=== PATIENT | female | born 1955 | race Caucasian/White ===

== ENCOUNTER → 2017-08-27 11:16 | Outpatient (CLI) | payer MEDICARE, SELFPAY ==
--- NOTE | 2017-08-27 11:35 | XR_ITS ---
XR ribs RT min 3V w CXR1V HISTORY: Right-sided rib pain, remote fall with pain anteriorly and posteriorly ITS.REASON: RT SIDE RIB PAIN ORDERING PHYSICIAN: ONIEL Middleton PATIENT AGE: 62 years COMPARISON: 03/21/2017 FINDINGS: A frontal view of the chest shows bilateral lower lobe atelectatic changes. Linear densities once again noted in the perihilar region as previously described. Multiple views of the right ribs were obtained. There are displaced fractures of the lateral aspect of the right third fourth and fifth ribs. No obvious pneumothorax. IMPRESSION: Displaced fractures of the right third fourth and fifth ribs with bilateral lower lobe atelectasis
[2017-08-27 11:44] LABS: Basophils # 0.1 K/mm3 (0-0.2); Basophils % 0.9 % (0.1-2.0); Eosinophils # 0.4 K/mm3 (0.0-0.4); Eosinophils % 7.4 % (0.1-12.0); Hematocrit 41.4 % (37.0-47.0); Hemoglobin 13.8 g/dL (12.2-16.2); Lymphocytes # 2.1 K/mm3 (0.7-4.5); Mean Corpuscular HGB Conc 33.4 g/dL (31.8-35.4); Mean Corpuscular Hemoglobin 31.5 pg (27.0-31.2); Mean Corpuscular Volume 94.3 fl (81-99); Mean Platelet Volume 7.1 fl (7.4-10.4); Monocytes # 0.3 K/mm3 (0.1-1.0); Monocytes % 6.3 % (1.7-9.3); Neutrophils # 2.3 K/mm3 (1.8-7.8); Neutrophils % 45.4 % (37.0-80.0); Platelet Count 238 K/mm3 (142-424); Red Blood Count 4.39 M/mm3 (4.20-5.40); White Blood Count 5.1 K/mm3 (4.8-10.8)
[2017-08-27 13:13] LABS: Alanine Aminotransferase 22 U/L (12-78); Albumin Level 3.9 gm/dL (3.4-5.0); Albumin/Globulin Ratio 1.1 (1.1-1.8); Alkaline Phosphatase 139 U/L (46-116); Anion Gap 14.9 mEq/L (5-15); Aspartate Amino Transferase 30 U/L (15-37); Bilirubin,Total 0.2 mg/dL (0.2-1.0); Blood Urea Nitrogen 24 mg/dL (7-18); Calcium 9.4 mg/dL (8.5-10.1); Carbon Dioxide 27 mmol/L (21.0-32.0); Chloride 103 mmol/L (98-107); Creatinine,Serum 0.67 mg/dL (0.55-1.02); Estimated Glomerular Filt Rate 90 ml/min (>60); GFR (African American) 109 ML/MIN (>60); Globulin 3.7 gm/dl (1.3-3.2); Glucose 92 mg/dL (74-106); Sodium 140 mmol/L (136-145); Thyroid Stimulating Hormone 1.62 uIU/ml (0.358-3.740); Total Protein,Serum 7.6 gm/dL (6.4-8.2)
[2017-08-27 13:32] LABS: Potassium 4.9 mmoL/L (3.5-5.1)
[2017-08-28 08:51] LABS: Vitamin D 25 Hydroxy 11.6 ng/mL (30.0-100.0)
[2017-08-29 18:19] LABS: Vitamin B12 627 pg/mL (232-1245)
== END ==
PROVIDERS: PCP Physician Assistant; Visit Provider Physician Assistant
DX: R55 Syncope and collapse (principal); R07.81 Pleurodynia; Z79.899 Other long term (current) drug therapy
CPT/HCPCS: 36415; 71101; 80053; 82607; 82652; 84443; 85025

== ENCOUNTER 2017-11-05 19:34 | Emergency (ER) | payer MEDICARE, SELFPAY ==
[2017-11-05 19:35] VITALS: BP 117/56; PULSE 78; RESP 20; TEMP 36.6; O2SAT 93; BMI 28.8
--- NOTE | 2017-11-05 19:40 | XR_ITS ---
XR chest AP COMPARISON: PA chest and right RIBS 08/27/2017 HISTORY: Chest pain after a fall TECHNIQUE: AP supine chest FINDINGS: The lung may are well expanded and appear clear of infiltrate. Cardiac size is normal and the vascularity is normal. Again noted are linear opacities in both perihilar region which have been described previously. There is no obvious rib fracture and there is no pneumothorax. IMPRESSION: Nonacute chest findings
--- NOTE | 2017-11-05 19:40 | CT_ITS ---
CT head/brain wo con Ordering Physician: Bright Fofana MD Patient Age: 62 years: Female HISTORY: ITS.REASON: fall, ams TECHNIQUE: [address] of [address] axial CT head without contrast Motion on the first set onto the second set of images in scanning. COMPARISON :June 12, 2014 FINDINGS No acute intracranial findings. No hemorrhage. No mass. No subdural collection. Possible some mild chronic small vessel deep white matter changes. No extra-axial nor subdural collection. Posterior fossa unremarkable. There is soft tissue swelling and generous hematoma overlying the left supraorbital region, left for head and extending to the left anterior scalp. The underlying skull is intact. No skull fracture. The left globe and orbit seem to be grossly intact as partially visualized on this head CT. The visualized nasal sinuses are clear. The mastoid air cells middle air and IACs well-developed unremarkable. IMPRESSION: No acute intracranial findings. Stable CT head Swelling and superficial forehead soft tissue hematoma, and extending to the anterior scalp. Skull intact
--- NOTE | 2017-11-05 19:40 | XR_ITS ---
XR pelvis 1-2V COMPARISON: The HISTORY pelvic pain after a fall TECHNIQUE: AP pelvis FINDINGS: The iliac bones and pubic bones appear intact. There is a total hip prosthesis left side appears intact. There is minor asymmetrical joint space narrowing right hip. There is a vertebroplasty of the L4 vertebral body. IMPRESSION: AP pelvis negative for acute fracture
--- NOTE | 2017-11-05 19:42 | CT_ITS ---
CT cervical spine wo con Ordering Physician: Bright Fofana MD Patient Age: 62 years: Female HISTORY: ITS.REASON: FALL TECHNIQUE: Helical CT scanning performed the cervical spine with axial, sagittal and coronal reconstructions on the CT workstation COMPARISON :previous CT chest from 04/14/2017e FINDINGS The cervical spine intact with no acute fracture The cervical vertebral bodies are intact with normal alignment but no fracture nor subluxation. The facets appear intact mild degenerative changes throughout most evident towards lower C-spine on left and mid C-spine on right. Minimal Prevertebral soft tissues appear normal. As does alignment C1-C2 relationships appear normal. Apices the lungs are clear There is mild wedging and slight loss of height at the superior aspect of T1 but this appears similar to the previous CT chest from 04/14/2017 reflects a minor old compression injury here IMPRESSION: 1. C-spine intact with No acute fracture or subluxation. 2. Minor old superior endplate compression & wedging at T1 vertebra is. Unchanged since previous CT chest from Apr 2017
--- NOTE | 2017-11-05 19:43 | CT_ITS ---
CT thoracic spine wo con Ordering Physician: Bright Fofana MD Patient Age: 62 years: Female HISTORY: ITS.REASON: fall TECHNIQUE: Helical CT scanning performed through the thoracic spine with sagittal and coronal and axial reconstructions on CT workstation COMPARISON : prior CT chest April 2017 most useful. Also CTA chest from May 2017 utilized FINDINGS Stable mild wedge compression fracture at T1 involving superior endplate... Only 10-15% % loss of height here anteriorly The posterior spinous process of C7 and T1 shows no displaced fracture. There is question of a possible hairline fracture towards the tip the T1q but this is equivocal. . Motion artifact on this CT C-spine of this area... Some irregular appearance but no fracture seen particularly on these CT thoracic spine studies including this area. T2, T2-3, T4-T5 vertebral bodies intact. T6 vertebra acute compression fracture.: This is the most significant finding on this study. Fracture with buckling of the cortex anteriorly & posteriorly.. Biconcave endplates con cavity with wedge compression most pronounced along superior endplate. Up to nearly 50% loss of height centrally with 35% loss of height at anterior margin Retropulsion with mild displacement of a modest fragment from the posterior superior corner of T6. . This posterior superior corner fragment retropulsion extends up to 3 mm posteriorly as left and right of midline yielding indentation upon the anterior aspect thecal sac with to the left and right of midline,. Foraminal encroachment most evident to the left foramen, as nicely seen on sagittal view. There is also some minimal fragmentation of the anterior inferior corner of T6 to the right Benign hemangioma at T7 account for striated appearance here. This benign vertebral hemangioma measures up to 2 cm AP on the left aspect of T7 vertebral body. Unchanged since prior CT chest study . The remaining vertebral bodies from T7 through T12 appear intact There is some minimal facet arthropathy throughout the mid as well as lower T-spine. These involve the facets T5/6 the anterior to the T11/12 level. Unimpressive feature but noted. The neural foramen throughout the lower T-spine intact. . The ribs adjacent the spine appear intact The visualized portions of the lungs show no pneumothorax but there is atelectasis most evident towards the infrahilar region and lung bases. Along with I believe some mild vascular congestion. Recommend 2 view chest for correlation. There is also a curious linear radiopaque calcified densities seen at the lower lobe pulmonary arteries bilaterally there certainly reminiscent of sheared fragments and have been noted previously on CTA and CT chest. A catheter sheared fragment? =====IMPRESSION: ======== 1. Acute Wedge compression fracture T6 . Minimal retropulsion from posterior superior corner T6, diffusely indents the thecal sac at this level & yielding bilateral foraminal encroachment most evident to the left.. 2. Equivocal, questionable subtle hairline fracture along the posterior aspect T1 spinous process. 3. Bibasilar atelectasis w/ questionable early infiltrate posterior left lung base. With suggestion mild vascular engorgement on today's study. Appearance This may be exaggerated by the suboptimal lung inspiration and suboptimal lung expansion as well. As previously reported again note linear densities towards within branches of lower lobe pulmonary arteries as noted as seen on previous CT chest studies from 2017. Reflecting an usual branching branching structures or calcification but cannot exclude sheared catheter fragments.
--- NOTE | 2017-11-05 19:46 | PC.NURSE ---
PT WORDS ARE REPETITIVE ALTHOUGH SHE IS ALERT AND ORIENTED X 4 AND ANSWERS QUESTIONS APPROPRIATELY. RIGHT PUPIL IS MEASURED AT 5 MM AND SLUGGISH, THE LEFT IS 4MM AND BRISK. DR. YU NOTIFIED OF FINDINGS.
--- NOTE | 2017-11-05 19:53 | HMH.EDGENADL ---
ED Disposition Condition on Discharge: Fair - Critical Care Critical Care Time: Yes Total Critical Care Time: 35 Vital system(s) involved:: Central Nervous System My critical care processes included: Assessment & monitoring of V/S, Initial and Re-exams, Data Review/Interpretation, Coordinating Care, Medication Orders and management, Documentation <Bright Fofana Delio - Last Filed: 11/05/17 19:53> <Trae Pulido - Last Filed: 11/05/17 21:45> Clinical Impression: Fracture of thoracic spine at T1-T2 level Change in mental status Qualifiers: Altered mental status type: unspecified Qualified Code(s): R41.82 - Altered mental status, unspecified Fall Qualifiers: Encounter type: initial encounter Qualified Code(s): W19.XXXA - Unspecified fall, initial encounter Concussion without loss of consciousness Qualifiers: Encounter type: initial encounter Qualified Code(s): S06.0X0A - Concussion without loss of consciousness, initial encounter Thoracic compression fracture Qualifiers: Encounter type: initial encounter Fracture type: closed Qualified Code(s): S22.000A - Wedge compression fracture of unspecified thoracic vertebra, initial encounter for closed fracture Disposition: Xfer Short-Term Hosp Referrals: Addis Hawk PA [Primary Care Provider] - Attestation: On 11/05/17, the high probability of a clinically significant, sudden or life threatening deterioration of the following system(s) required my full and direct attention, intervention and personal management. The time I documented below is in addition to time spent performing reported procedures but includes the following listed in this critical care notation. Medical Decision Making - Medical Records Medical records reviewed: Yes: I reviewed the patient's medical records. - Mehdi Inquiry Pt receiving controlled substance: No - ECG Data Tracing #1 I reviewed this ECG and interpreted as documented below: ECG normal with no acute: arrhythmias, ischemia, conduction abnormalities, chamber hypertrophy Normal Sinus Rhythm: No <Bright Fofana - Last Filed: 11/05/17 19:53> - Lab Data Lab results reviewed: Yes: I reviewed the patient's lab results. Result diagrams: 11/05/17 19:49 11/05/17 19:49 - Radiology Data #1 Image(s): Chest, Pelvis Image Reviewed: Yes I reviewed the patient's radiology image Preliminary Findings: No Fracture Seen - CT Data CT Scan: Head, C-Spine, T-Spine Time Received: 21:[address] Reviewed: Yes: I have viewed the radiologist's interpretation Preliminary Findings: Abnormal (t6 fx ) - Physician Consults Physician Consulted: trauma Reason -: Transfer to another facilty <Trae Pulido - Last Filed: 11/05/17 21:45> Vital Signs: 11/05/17 19:35 Temperature 97.9 F Temperature Source Oral Pulse Rate [Right Radial] 78 Respiratory Rate 20 Blood Pressure [Right Arm] 117/56 Blood Pressure Mean [Right Arm] 76 02 Sat by Pulse Oximetry 93 L - Lab Data Lab Results 11/05/17 19:44: Urine Color Yellow, Urine Appearance Clear, Urine pH 6.5, Ur Specific [place] 1.025, Urine Protein Negative, Urine Glucose (UA) Negative, Urine Ketones Negative, Urine Blood Negative, Urine Nitrate Negative, Urine Bilirubin Negative, Urine Urobilinogen 0.2, Ur Leukocyte Esterase Negative, Urine RBC Occasional, Urine WBC Occasional, Ur Squamous Epith Cells 10-20, Urine Bacteria 1+, Hyaline Casts Occasional, Fine Granular Casts Occasional, Urine Mucus Trace 11/05/17 19:44: Urine Opiates Screen Negative, Ur Barbituates Screen Positive H, Ur Phencyclidine Scrn Negative, Ur Amphetamines Screen Negative, U Methamphetamines Scrn Negative, U Benzodiazepines Scrn Negative, Urine Cocaine Screen Negative, U Marijuana (THC) Screen Negative 11/05/17 19:49: WBC 6.3, RBC 4.27, Hgb 13.4, Hct 40.9, MCV 95.9, MCH 31.4 H, MCHC 32.8, RDW 12.3, Plt Count 225, MPV 7.0 L, Neut % (Auto) 72.1, Lymph % (Auto) 21.3, [place] % (Auto) 5.1, Eos % (Auto) 1.1, Baso % (A
[2017-11-05 19:55] LABS: Microscopic, Urine URINE MICROSCOPIC (MICROSCOPIC)
--- NOTE | 2017-11-05 19:56 | ED_ITS ---
ED Disposition Condition on Discharge: Fair - Critical Care Critical Care Time: Yes Total Critical Care Time: 35 Vital system(s) involved:: Central Nervous System My critical care processes included: Assessment & monitoring of V/S, Initial and Re-exams, Data Review/Interpretation, Coordinating Care, Medication Orders and management, Documentation <Bright Fofana Delio - Last Filed: 11/05/17 19:53> <Trae Pulido - Last Filed: 11/05/17 21:45> Clinical Impression: Fracture of thoracic spine at T1-T2 level Change in mental status Qualifiers: Altered mental status type: unspecified Qualified Code(s): R41.82 - Altered mental status, unspecified Fall Qualifiers: Encounter type: initial encounter Qualified Code(s): W19.XXXA - Unspecified fall, initial encounter Concussion without loss of consciousness Qualifiers: Encounter type: initial encounter Qualified Code(s): S06.0X0A - Concussion without loss of consciousness, initial encounter Thoracic compression fracture Qualifiers: Encounter type: initial encounter Fracture type: closed Qualified Code(s): S22.000A - Wedge compression fracture of unspecified thoracic vertebra, initial encounter for closed fracture Disposition: Xfer Short-Term Hosp Referrals: Addis Hawk PA [Primary Care Provider] - Attestation: On 11/05/17, the high probability of a clinically significant, sudden or life threatening deterioration of the following system(s) required my full and direct attention, intervention and personal management. The time I documented below is in addition to time spent performing reported procedures but includes the following listed in this critical care notation. Medical Decision Making - Medical Records Medical records reviewed: Yes: I reviewed the patient's medical records. - Mehdi Inquiry Pt receiving controlled substance: No - ECG Data Tracing #1 I reviewed this ECG and interpreted as documented below: ECG normal with no acute: arrhythmias, ischemia, conduction abnormalities, chamber hypertrophy Normal Sinus Rhythm: No <Bright Fofana - Last Filed: 11/05/17 19:53> - Lab Data Lab results reviewed: Yes: I reviewed the patient's lab results. Result diagrams: 11/05/17 19:49 11/05/17 19:49 - Radiology Data #1 Image(s): Chest, Pelvis Image Reviewed: Yes I reviewed the patient's radiology image Preliminary Findings: No Fracture Seen - CT Data CT Scan: Head, C-Spine, T-Spine Time Received: 21:[address] Reviewed: Yes: I have viewed the radiologist's interpretation Preliminary Findings: Abnormal (t6 fx ) - Physician Consults Physician Consulted: trauma Reason -: Transfer to another facilty <Trae Pulido - Last Filed: 11/05/17 21:45> Vital Signs: 11/05/17 19:35 Temperature 97.9 F Temperature Source Oral Pulse Rate [Right Radial] 78 Respiratory Rate 20 Blood Pressure [Right Arm] 117/56 Blood Pressure Mean [Right Arm] 76 02 Sat by Pulse Oximetry 93 L - Lab Data Lab Results 11/05/17 19:44: Urine Color Yellow, Urine Appearance Clear, Urine pH 6.5, Ur Specific [place] 1.025, Urine Protein Negative, Urine Glucose (UA) Negative, Urine Ketones Negative, Urine Blood Negative, Urine Nitrate Negative, Urine Bilirubin Negative, Urine Urobilinogen 0.2, Ur Leukocyte Esterase Negative, Urine RBC Occasional, Urine WBC Occasional, Ur Squamous Epith Cells 10-20, Urine Bacteria 1+, Hyaline Casts Occasional, Fine
[2017-11-05 20:03] LABS: Appearance,Urine CLEAR (Clear); Bilirubin,Urine Negative (Negative); Blood, Urine Negative (Negative); Color,Urine YELLOW (Yellow); Glucose,Urine (UA) Negative (Negative); Ketones,Urine Negative (Negative); Leukocyte Esterase,Urine Negative (Negative); Nitrate,Urine Negative (Negative); PH,Urine 6.5 (5.0-8.5); Protein,Urine Negative (Negative); Specific Gravity, Urine 1.025 (1.005-1.030); Urobilinogen,Urine 0.2 EU/dl (0.2)
[2017-11-05 20:03] LABS: Basophils % 0.5 % (0.1-2.0); Eosinophils # 0.1 K/mm3 (0.0-0.4); Eosinophils % 1.1 % (0.1-12.0); Hematocrit 40.9 % (37.0-47.0); Hemoglobin 13.4 g/dL (12.2-16.2); Lymphocytes # 1.3 K/mm3 (0.7-4.5); Lymphocytes % 21.3 K/mm3 (10-50); Mean Corpuscular HGB Conc 32.8 g/dL (31.8-35.4); Mean Corpuscular Hemoglobin 31.4 pg (27.0-31.2); Mean Corpuscular Volume 95.9 fl (81-99); Monocytes # 0.3 K/mm3 (0.1-1.0); Monocytes % 5.1 % (1.7-9.3); Neutrophils # 4.6 K/mm3 (1.8-7.8); Neutrophils % 72.1 % (37.0-80.0); Platelet Count 225 K/mm3 (142-424); Red Blood Count 4.27 M/mm3 (4.20-5.40); Red Cell Distribution Width 12.3 % (11.5-17.5); White Blood Count 6.3 K/mm3 (4.8-10.8)
[2017-11-05 20:21] LABS: Amphetamine/Metha Screen,Urine Negative ng/mL (<1000); Barbiturates Screen,Urine Positive ng/mL (<200); Benzodiazepines Screen,Urine Negative ng/mL (200); Cannabinoid Screen,Urine Negative ng/mL (<50); Cocaine Screen,Urine Negative ng/g (<300); Methadone Screen,Urine Negative ng/mL (<300); Opiate Screen,Urine Negative ng/mL (<300); Phencyclidine Screen,Urine Negative ng/mL (<25)
[2017-11-05 20:29] LABS: Alanine Aminotransferase 20 U/L (12-78); Albumin Level 3.6 gm/dL (3.4-5.0); Alkaline Phosphatase 94 U/L (46-116); Anion Gap 12.1 mEq/L (5-15); Aspartate Amino Transferase 20 U/L (15-37); Bilirubin,Total 0.2 mg/dL (0.2-1.0); Blood Urea Nitrogen 13 mg/dL (7-18); CKMB Relative Index 1.2 U/L (0-4.0); Calcium 8.6 mg/dL (8.5-10.1); Carbon Dioxide 27 mmol/L (21.0-32.0); Chloride 92 mmol/L (98-107); Creatine Kinase 81 U/L (26-192); Creatinine Clearance Estimated 115 mL/min (0-300); Creatinine,Serum 0.71 mg/dL (0.55-1.02); Estimated Glomerular Filt Rate 84 ml/min (>60); GFR (African American) 102 ML/MIN (>60); Globulin 3.7 gm/dl (1.3-3.2); Glucose 132 mg/dL (74-106); Potassium 4.1 mmoL/L (3.5-5.1); Sodium 127 mmol/L (136-145); Total Protein,Serum 7.3 gm/dL (6.4-8.2); Troponin I < 0.02 ng/ml (0.00-0.06)
[2017-11-05 20:33] LABS: Ethyl Alcohol 0 mg/dL (0-99)
[2017-11-05 20:44] LABS: Bacteria,Urine 1+ /lpf; Hyaline Casts,Urine Occasional #/lpf (0); RBC,Urine Occasional #/hpf (0-3); WBC,Urine Occasional #/hpf (0-3)
[2017-11-05 20:45] LABS: Fine Granular Casts,Urine Occasional #/lpf (0); Mucus,Urine Trace /lpf
--- NOTE | 2017-11-05 20:56 | PC.NURSE ---
spoke with who reports pt is treated for headaches by Dr Estrada in [place], gave approx timeline, headache started about 1500, suffers visual disturbance, still unable to get out of bed at 1700, fell about 1800 and could not get off floor. also gave partial med list.
--- NOTE | 2017-11-05 21:44 | PC.NURSE ---
Spoke with and informed of transport to [facility]
--- NOTE | 2017-11-05 21:50 | PC.NURSE ---
[facility] notified of transfer
[2017-11-05 22:12] VITALS: BP 151/90; PULSE 87; RESP 18; TEMP 37.1; O2SAT 98
== END 2017-11-05 22:14 | disposition short-term general hospital (02) ==
PROVIDERS: Emergency Provider Emergency Medicine; Family Provider Physician Assistant; PCP Physician Assistant
DX: S06.0X0A Concussion without loss of consciousness, initial encounter (principal); S22.000A Wedge compression fracture of unspecified thoracic vertebra, initial encounter for closed fracture; W19.XXXA Unspecified fall, initial encounter
CPT/HCPCS: 36415; 70450; 71045; 72125; 72128; 72170; 80053; 80305; 81001; 82550; 82553; 84484; 85025; 93005; 96374; 99284

== ENCOUNTER → 2018-01-14 08:31 | Outpatient (CLI) | payer MEDICARE, SELFPAY ==
[2018-01-14 09:09] LABS: Basophils % 0.8 % (0.1-2.0); Eosinophils # 0.2 K/mm3 (0.0-0.4); Eosinophils % 5.6 % (0.1-12.0); Hematocrit 43.4 % (37.0-47.0); Hemoglobin 13.7 g/dL (12.2-16.2); Lymphocytes # 1.9 K/mm3 (0.7-4.5); Lymphocytes % 48.5 K/mm3 (10-50); Mean Corpuscular HGB Conc 31.6 g/dL (31.8-35.4); Mean Corpuscular Hemoglobin 29.7 pg (27.0-31.2); Mean Corpuscular Volume 93.9 fl (81-99); Mean Platelet Volume 6.9 fl (7.4-10.4); Monocytes # 0.2 K/mm3 (0.1-1.0); Monocytes % 5.3 % (1.7-9.3); Neutrophils # 1.6 K/mm3 (1.8-7.8); Neutrophils % 39.8 % (37.0-80.0); Platelet Count 230 K/mm3 (142-424); Red Blood Count 4.63 M/mm3 (4.20-5.40); Red Cell Distribution Width 12.8 % (11.5-17.5); White Blood Count 3.9 K/mm3 (4.8-10.8)
--- NOTE | 2018-01-14 09:35 | XR_ITS ---
XR DEXA axial skeleton HISTORY: ITS.REASON: OSTEOPAROSIS ORDERING PHYSICIAN: Deepak Morales PATIENT AGE: 62 years COMPARISON: None FINDINGS: The BMD measured at the total right femur is 0.650 g/cm squared with a T score of -2.8. This is considered Osteoporotic according to the World Health Organization criteria. Fracture risk is High. . Suggested. Recommend follow exam January 2019.. IMPRESSION: Osteoporosis with high fracture risk
[2018-01-14 10:52] LABS: Alanine Aminotransferase 19 U/L (12-78); Albumin Level 3.9 gm/dL (3.4-5.0); Alkaline Phosphatase 90 U/L (46-116); Anion Gap 11.5 mEq/L (5-15); Aspartate Amino Transferase 17 U/L (15-37); Bilirubin,Direct 0.1 mg/dL (0.0-0.2); Bilirubin,Indirect 0.3 mg/dL (0.0-0.9); Bilirubin,Total 0.4 mg/dL (0.2-1.0); Blood Urea Nitrogen 16 mg/dL (7-18); Calcium 9.4 mg/dL (8.5-10.1); Carbon Dioxide 29 mmol/L (21.0-32.0); Chloride 105 mmol/L (98-107); Creatinine,Serum 0.69 mg/dL (0.55-1.02); Estimated Glomerular Filt Rate 87 ml/min (>60); GFR (African American) 105 ML/MIN (>60); Glucose 94 mg/dL (74-106); Phosphorous 3.4 mg/dL (2.4-4.9); Potassium 4.5 mmoL/L (3.5-5.1); Sodium 141 mmol/L (136-145); Total Protein,Serum 7.4 gm/dL (6.4-8.2)
[2018-01-16 13:33] LABS: Parathyroid Hormone Intact 61 pg/mL (15-65); Vitamin D 25 Hydroxy 13.7 ng/mL (30.0-100.0)
== END ==
PROVIDERS: Family Provider Physician Assistant; PCP Physician Assistant; Visit Provider Orthopaedic Surgery
DX: M81.0 Age-related osteoporosis without current pathological fracture (principal); Z01.818 Encounter for other preprocedural examination
CPT/HCPCS: 36415; 77080; 80048; 80053; 80076; 82565; 82652; 83970; 84100; 85025

== ENCOUNTER → 2018-03-12 08:03 | Outpatient (CLI) | payer MEDICARE, SELFPAY ==
[2018-03-13 15:23] LABS: Vitamin D 25 Hydroxy 61.2 ng/mL (30.0-100.0)
== END ==
PROVIDERS: Visit Provider Orthopaedic Surgery
DX: S22.000A Wedge compression fracture of unspecified thoracic vertebra, initial encounter for closed fracture (principal)
CPT/HCPCS: 36415; 82652

== ENCOUNTER → 2018-03-20 08:06 | Outpatient (CLI) | payer MEDICARE, SELFPAY ==
[2018-03-20 08:44] LABS: Basophils % 0.8 % (0.1-2.0); Eosinophils # 0.2 K/mm3 (0.0-0.4); Eosinophils % 3.8 % (0.1-12.0); Hematocrit 41.1 % (37.0-47.0); Hemoglobin 13.5 g/dL (12.2-16.2); Lymphocytes # 1.8 K/mm3 (0.7-4.5); Lymphocytes % 42.5 K/mm3 (10-50); Mean Corpuscular HGB Conc 32.8 g/dL (31.8-35.4); Mean Corpuscular Volume 91.5 fl (81-99); Mean Platelet Volume 6.7 fl (7.4-10.4); Monocytes # 0.2 K/mm3 (0.1-1.0); Monocytes % 5.8 % (1.7-9.3); Neutrophils % 47.1 % (37.0-80.0); Platelet Count 196 K/mm3 (142-424); Red Blood Count 4.49 M/mm3 (4.20-5.40); White Blood Count 4.3 K/mm3 (4.8-10.8)
[2018-03-20 09:30] LABS: Calcium 8.8 mg/dL (8.5-10.1); Phosphorous 2.6 mg/dL (2.4-4.9)
[2018-03-21 18:42] LABS: Alkaline Phosphatase 72 IU/L (39-117); Parathyroid Hormone Intact 50 pg/mL (15-65)
[2018-03-24 15:22] LABS: Bone Fraction: 37 % (14-68); Liver Fraction: 63 % (18-85)
[2018-03-25 10:57] LABS: Intestinal Frac.: 0 % (0-18)
== END ==
PROVIDERS: Visit Provider Orthopaedic Surgery
DX: M80.08XD Age-related osteoporosis with current pathological fracture, vertebra(e), subsequent encounter for fracture with routine healing (principal); Z79.899 Other long term (current) drug therapy
CPT/HCPCS: 36415; 82310; 83970; 84075; 84080; 84100; 85025

== ENCOUNTER → 2018-08-11 10:13 | Outpatient (CLI) | payer MEDICARE, SELFPAY ==
--- NOTE | 2018-08-11 10:18 | XR_ITS ---
XR pelvis 1-2V HISTORY: Follow-up fracture, pain ITS.REASON: Injury of pelvis ORDERING PHYSICIAN: Demetria Macedo MD PATIENT AGE: 63 years Comparison: 07/17/2018 FINDINGS: Healing fractures present involving the junction of superior pubic ramus with the ischium on the right and at the mid aspect of the inferior pubic ramus. Fracture line is somewhat less distinct. There is a left bipolar hip prosthesis present and there has been prior kyphoplasty at L4. IMPRESSION: Healing nondisplaced right superior anterior pubic rami fractures
== END ==
PROVIDERS: PCP Physician Assistant; Visit Provider Orthopaedic Surgery
DX: S32.599A Other specified fracture of unspecified pubis, initial encounter for closed fracture (principal)
CPT/HCPCS: 72170

== ENCOUNTER → 2018-09-28 07:46 | Outpatient (CLI) | payer MEDICARE, SELFPAY ==
--- NOTE | 2018-09-28 08:06 | XR_ITS ---
XR hip RT 2-3V w/pelvis HISTORY: Right hip pain, follow-up fracture ITS.REASON: CLOSE FX RAMUS ORDERING PHYSICIAN: ONIEL Middleton PATIENT AGE: 63 years COMPARISON: 07/17/2018 FINDINGS: Fracture line remains visible involving the junction of the right superior pubic ramus with the ischium. This fracture is nondisplaced. There may be some minimal callus formation medially. The fracture line is somewhat less apparent. There is developing calcification along the central aspect of the inferior pubic ramus on the right consistent with a healing fracture. The hip joint has an unremarkable appearance. There is a bipolar prosthesis present on the left. IMPRESSION: Healing right superior and inferior pubic rami fractures nondisplaced
[2018-09-28 09:14] LABS: Erythrocyte Sedimentation Rate 27 mm/hr (0-30)
[2018-09-28 09:34] LABS: Alanine Aminotransferase 21 U/L (12-78); Albumin Level 3.6 gm/dL (3.4-5.0); Albumin/Globulin Ratio 1.1 (1.1-1.8); Alkaline Phosphatase 125 U/L (46-116); Anion Gap 11.5 mEq/L (5-15); Aspartate Amino Transferase 11 U/L (15-37); Bilirubin,Total 0.3 mg/dL (0.2-1.0); Blood Urea Nitrogen 13 mg/dL (7-18); Calcium 8.7 mg/dL (8.5-10.1); Carbon Dioxide 28 mmol/L (21.0-32.0); Chloride 107 mmol/L (98-107); Chol/HDL Ratio 4.4 (1-3.5); Cholesterol 244 mg/dL (140-200); Creatinine,Serum 0.79 mg/dL (0.55-1.02); Estimated Glomerular Filt Rate 74 ml/min (>60); GFR (African American) 90 ML/MIN (>60); Globulin 3.4 gm/dl (1.3-3.2); Glucose 90 mg/dL (74-106); HDL Cholesterol 56 mg/dL (29-89); LDL Cholesterol 143 mg/dL (0-130); Potassium 4.5 mmoL/L (3.5-5.1); Sodium 142 mmol/L (136-145); Thyroid Stimulating Hormone 3.01 uIU/ml (0.358-3.740); Triglycerides 227 mg/dL (30-200); Uric Acid 6.1 mg/dL (2.6-7.2); VLDL Cholesterol 45 mg/dL (0-40)
[2018-09-30 08:04] LABS: RA Latex Turbid. <10.0 IU/mL (0.0-13.9)
[2018-09-30 12:51] LABS: Antinuclear Antibodies, IFA Positive (.)
== END ==
PROVIDERS: PCP Family Medicine; Visit Provider Physician Assistant
DX: S32.591D Other specified fracture of right pubis, subsequent encounter for fracture with routine healing (principal); E78.2 Mixed hyperlipidemia; M25.50 Pain in unspecified joint; I10 Essential (primary) hypertension; Z13.29 Encounter for screening for other suspected endocrine disorder
CPT/HCPCS: 36415; 73502; 80053; 80061; 84443; 84550; 85651; 86038; 86431

== ENCOUNTER → 2018-11-09 10:23 | Outpatient (CLI) | payer MEDICARE, SELFPAY ==
--- NOTE | 2018-11-09 10:31 | MM_ITS ---
MM Dig screening mamm BI w/CAD ORDERING PHYSICIAN : Reji Tiwari MD PATIENT AGE: 63 years GENDER: Female COMPARISON: No prior studies available Prior studies apparently have been purged INDICATION: ITS.Routine screening mammogram. Patient Takes Estrogen. No new complaints. Family history. Mother with breast cancer. Also Sister with breast cancer in her 50s TECHNIQUE: Standard CC and MLO images were obtained. R2 CAD reviewed. Also axillary cc view both right and left breast included FINDINGS: Moderate density breast. Fibroglandular elements distributed mainly in the central: The breast and extending lateral No dominant nor suspicious mass. No Suspicious calcifications.. On fairly symmetric appearance to the fibroglandular pattern is slightly more generous fibroglandular elements extending towards upper-outer quadrant left breast. HISTORY sheet states previous mammogram study at this facility, but none are available in PACS under this name and M number. Told prior studies have been purged... Thus there are no prior studies for comparison IMPRESSION: . . No focal areas of concern.- Bilateral follow-up in one year recommended No prior studies for comparison Moderate breast density BI-RADS Category: 1 Negative RECOMMENDED FOLLOW-UP: 1YR 1 YEAR FOLLOW-UP (A letter has been sent to the patient regarding results of the study.)
== END ==
PROVIDERS: PCP Family Medicine; Visit Provider Family Medicine
DX: Z12.31 Encounter for screening mammogram for malignant neoplasm of breast (principal)
CPT/HCPCS: 77067

== ENCOUNTER → 2018-11-19 08:22 | Outpatient (CLI) | payer MEDICARE, SELFPAY ==
--- NOTE | 2018-11-19 08:44 | XR_ITS ---
XR hip RT 2-3V w/pelvis HISTORY: Follow-up fracture ITS.REASON: HEALING OF RT HIP FX ORDERING PHYSICIAN: ONIEL Middleton PATIENT AGE: 63 years COMPARISON: 09/28/2018 FINDINGS: Nondisplaced fractures are present involving the right superior and inferior pubic rami with fracture lines are somewhat less apparent with callus formation developing. There is good alignment. Left hip prosthesis is noted. IMPRESSION: Healing right superior and inferior pubic ramus fractures nondisplaced
== END ==
PROVIDERS: PCP Family Medicine; Visit Provider Physician Assistant
DX: S32.591D Other specified fracture of right pubis, subsequent encounter for fracture with routine healing (principal)
CPT/HCPCS: 73502

== ENCOUNTER → 2019-03-03 10:58 | Outpatient (CLI) | payer MEDICARE, SELFPAY ==
[2019-03-03 12:22] LABS: Alanine Aminotransferase 19 U/L (12-78); Albumin Level 3.8 gm/dL (3.4-5.0); Albumin/Globulin Ratio 1.2 (1.1-1.8); Alkaline Phosphatase 97 U/L (46-116); Anion Gap 11.3 mEq/L (5-15); Aspartate Amino Transferase 13 U/L (15-37); Bilirubin,Total 0.4 mg/dL (0.2-1.0); Blood Urea Nitrogen 23 mg/dL (7-18); Carbon Dioxide 27 mmol/L (21.0-32.0); Chloride 108 mmol/L (98-107); Chol/HDL Ratio 3.7 (1-3.5); Cholesterol 198 mg/dL (140-200); Creatinine,Serum 0.85 mg/dL (0.55-1.02); Estimated Glomerular Filt Rate 68 ml/min (>60); GFR (African American) 82 ML/MIN (>60); Globulin 3.2 gm/dl (1.3-3.2); Glucose 95 mg/dL (74-106); HDL Cholesterol 54 mg/dL (29-89); LDL Cholesterol 120 mg/dL (0-130); Potassium 4.3 mmoL/L (3.5-5.1); Sodium 142 mmol/L (136-145); Triglycerides 122 mg/dL (30-200); VLDL Cholesterol 24 mg/dL (0-40)
[2019-03-04 13:19] LABS: Vitamin D 25 Hydroxy 24.1 ng/mL (30.0-100.0)
== END ==
PROVIDERS: Visit Provider Physician Assistant
DX: E78.2 Mixed hyperlipidemia (principal); E55.9 Vitamin D deficiency, unspecified
CPT/HCPCS: 36415; 80053; 80061; 82652

== ENCOUNTER → 2019-03-12 12:08 | Outpatient (CLI) | payer MEDICARE, SELFPAY ==
[2019-03-12 14:25] LABS: Blood Urea Nitrogen 13 mg/dL (7-18); Creatinine,Serum 0.83 mg/dL (0.55-1.02); Estimated Glomerular Filt Rate 70 ml/min (>60); GFR (African American) 85 ML/MIN (>60)
== END ==
PROVIDERS: Visit Provider Podiatrist
DX: Z79.899 Other long term (current) drug therapy (principal)
CPT/HCPCS: 36415; 82565; 84520

== ENCOUNTER → 2019-03-15 11:15 | Outpatient (CLI) | payer MEDICARE, SELFPAY | PROVIDERS: PCP Family Medicine; Visit Provider Physician Assistant | DX: I10 Essential (primary) hypertension (principal); R53.83 Other fatigue; R06.83 Snoring; G47.30 Sleep apnea, unspecified | CPT/HCPCS: 95806 ==

== ENCOUNTER → 2019-03-17 09:56 | Outpatient (CLI) | payer MEDICARE, SELFPAY ==
--- NOTE | 2019-03-17 10:04 | MR_ITS ---
PROCEDURE: MR FOOT LT WO/W CON CLINICAL INDICATION: fracture evaluation Pain following injury with 1st metatarsal fracture COMPARISON: Foot L from 03/09/2019 TECHNIQUE: Routine multiplanar multi echo sequences are performed without and with gadolinium enhancement FINDINGS: There is a nondisplaced fracture involving the proximal shaft of the 1st metatarsal with bone marrow edema and enhancement at the fracture site. There is enhancing of the soft tissues adjacent to the fracture. No obvious bony destructive process. A nondisplaced fracture also involves the mid aspect of the calcaneus. This does not appear to extend into the subtalar joint but extends inferiorly toward the inferior surface of the calcaneus but not into the calcaneocuboid joint. The tibiofibular ligaments and talofibular ligaments appear intact. The extensor hallucis longus tendon show slight increase signal distally possibly related to tear. There is extensive soft tissue edema in the midfoot medially. There are osteoarthritic changes of the 1st metatarsophalangeal joint.. There is a small area of increased T2 signal along the medial aspect of the talar dome nonspecific. There is increased T2 signal of the deltoid ligament which could be due to partial tear or sprain. The deltoid ligament does not appear completely torn. IMPRESSION: 1. Nondisplaced healing fracture of the proximal 1st metatarsal. There is moderate amount of edema around the fracture site. There is enhancement at the fracture site however, this could be due to healing 2. Nondisplaced calcaneal fracture involving the mid anterior aspect of the calcaneus without intra-articular extension Dictated by: Tan Morataya MD 03/19/2019 14:10 Signed by: <Electronically signed by Tan Morataya MD in [place]> 03/19/2019 14:10
--- NOTE | 2019-03-17 11:16 | HMH.ITSHM ---
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 []ATENOLOL DULOXETINE HYDROCHLOROT ROPINIROLE OMEPRAZOLE ROSUVASTATIN CLOPIDOGREL ESTRADIOL GABAPENTIN TRAZADONE ASPIRIN VITAMIN D TYLENOL ADVIL TRAMADOL
== END ==
PROVIDERS: PCP Physician Assistant; Visit Provider Podiatrist
DX: S92.312A Displaced fracture of first metatarsal bone, left foot, initial encounter for closed fracture (principal)
CPT/HCPCS: 73720; A9576

== ENCOUNTER → 2019-04-01 10:06 | Outpatient (CLI) | payer MEDICARE, SELFPAY ==
--- NOTE | 2019-04-01 10:10 | XR_ITS ---
PROCEDURE: XR FOOT WT BEARING RT 3V CLINICAL INDICATION: pain Pain and swelling COMPARISON: No exams were available for comparison FINDINGS: Moderate hallux valgus with osteoarthritis of the 1st MTP joint and bunion formation No fracture or dislocation. Normal alignment Other findings:None. IMPRESSION: Hallux valgus with bunion formation Dictated by: Tan Morataya MD 04/01/2019 12:19 Signed by: <Electronically signed by Tan Morataya MD in [place]> 04/01/2019 12:19
--- NOTE | 2019-04-01 10:10 | XR_ITS ---
PROCEDURE: XR FOOT WT BEARING LT 3V CLINICAL INDICATION: fracture follow up Pain, follow-up fracture COMPARISON: Foot L from 03/09/2019 FINDINGS: Studies obtained through a cast. Healing fracture present involving the base of the 1st metatarsal. The does appear to be some callus formation.. The fracture is slightly displaced medially. Hallux valgus noted. Other findings:None. IMPRESSION: Healing mildly displaced fracture involving the 1st metatarsal with hallux valgus Dictated by: Tan Morataya MD 04/01/2019 12:21 Signed by: <Electronically signed by Tan Morataya MD in [place]> 04/01/2019 12:21
== END ==
PROVIDERS: PCP Physician Assistant; Visit Provider Podiatrist
DX: S92.015A Nondisplaced fracture of body of left calcaneus, initial encounter for closed fracture (principal); S92.315D Nondisplaced fracture of first metatarsal bone, left foot, subsequent encounter for fracture with routine healing; M79.674 Pain in right toe(s)
CPT/HCPCS: 73630

== ENCOUNTER → 2019-04-29 10:16 | Outpatient (CLI) | payer MEDICARE, SELFPAY ==
--- NOTE | 2019-04-29 10:19 | XR_ITS ---
PROCEDURE: XR ANKLE WT BEARING LT MIN 3V CLINICAL INDICATION: fracture Follow-up fracture COMPARISON: XR FOOT WT BEARING LT 3V from 04/01/2019 XR FOOT WT BEARING LT 3V from 04/29/2019 FINDINGS: A cast remains in place. The ankle has an unremarkable appearance. Healing fracture involves the proximal aspect of the 1st metatarsal. There is hallux valgus. Increasing callus formation noted at the fracture site. There is mild dorsomedial displacement of the distal fracture fragment IMPRESSION: Healing 1st metatarsal fracture with hallux valgus Dictated by: Tan Morataya MD 04/29/2019 13:09 Electronically signed by Tan Morataya MD in [place] 04/29/2019 13:09
== END ==
PROVIDERS: PCP Physician Assistant; Visit Provider Podiatrist
DX: Z98.890 Other specified postprocedural states (principal); S92.312G Displaced fracture of first metatarsal bone, left foot, subsequent encounter for fracture with delayed healing; S92.015D Nondisplaced fracture of body of left calcaneus, subsequent encounter for fracture with routine healing; R60.0 Localized edema; M77.42 Metatarsalgia, left foot; M79.672 Pain in left foot
CPT/HCPCS: 73610; 73630

== ENCOUNTER → 2019-05-11 14:38 | Outpatient (CLI) | payer MEDICARE, SELFPAY ==
--- NOTE | 2019-05-11 14:40 | CT_ITS ---
PROCEDURE: CT FOOT LT WO CON CLINICAL HISTORY: Fractures of Left Foot Foot pain, 1st metatarsal fracture with delayed healing, nondisplaced calcaneal fracture, metatarsalgia, foot edema, bunion, possible delayed nonunion COMPARISON: MR FOOT LT WO/W CON from 03/17/2019 XR FOOT WT BEARING LT 3V from 04/29/2019 TECHNIQUE: Axial images obtained with sagittal and coronal reformats. All CT scans at the facility use one or more dose reduction, viz: automated exposure control, ma/kV adjustment per patient size (including targeted exams where dose is matched to indication, i.e. head), or iterative reconstruction technique. FINDINGS: There is diffuse generalized osteopenia. The distal tibia and distal fibula show no acute finding. No obvious talar fracture. There is diffuse osteopenia of the calcaneus. The MRI suggested a nondisplaced fracture of the mid the distal aspect of the calcaneus. This is below limits of resolution on the CT scan especially with the degree of osteopenia and may have healed in the interval. Unremarkable navicular, cuboid, and cuneiforms There is a displaced fracture of the proximal 1st metatarsal normal. The distal fracture fragment is slightly displaced medially by 3 mm. There is overlying callus formation however. Fracture line is still visible along the inferior aspect of the 1st metatarsal. There is hallux valgus with bunion formation and osteoarthritis of the 1st MTP joint. The There is mild generalized soft tissue swelling of the foot and ankle with no localized fluid collections evident IMPRESSION: 1. Healing mildly displaced fracture at the proximal aspect of the 1st metatarsal with hallux valgus and osteoarthritis of the 1st MTP joint 2. No obvious Lisfranc fracture or subluxation apparent Dictated by: Tan Morataya MD 05/12/2019 15:37 Electronically signed by Tan Morataya MD in [facility] 05/14/2019 11:19
== END ==
PROVIDERS: PCP Physician Assistant; Visit Provider Podiatrist
DX: S92.002A Unspecified fracture of left calcaneus, initial encounter for closed fracture (principal); S92.312A Displaced fracture of first metatarsal bone, left foot, initial encounter for closed fracture
CPT/HCPCS: 73700

== ENCOUNTER → 2019-06-08 14:46 | Outpatient (CLI) | payer MEDICARE, SELFPAY ==
--- NOTE | 2019-06-08 14:57 | XR_ITS ---
PROCEDURE: XR FOOT WT BEARING LT 3V CLINICAL INDICATION: fracture of joint Follow-up fracture COMPARISON: Foot L from 03/09/2019 XR FOOT WT BEARING RT 3V from 04/01/2019 XR FOOT WT BEARING LT 3V from 04/01/2019 XR FOOT WT BEARING LT 3V from 04/29/2019 FINDINGS: Studies obtained through an air boot. There is a healing fracture involving the proximal aspect of the 1st metatarsal. There is some mild dorsal displacement of the distal fracture fragment which appears somewhat improved from 04/29/2019. There is mild hallux valgus with osteoarthritic change and bunion formation at the 1st MTP joint. Other findings:None. IMPRESSION: Healing 1st metatarsal fracture with hallux valgus and bunion Dictated by: Tan Morataya MD 06/08/2019 15:17 Electronically signed by Tan Morataya MD in [facility] 06/08/2019 15:17
--- NOTE | 2019-06-08 14:57 | XR_ITS ---
PROCEDURE: XR ANKLE WT BEARING LT MIN 3V CLINICAL INDICATION: fracture of joint Follow-up fracture. COMPARISON: XR ANKLE WT BEARING LT MIN 3V from 04/29/2019 FINDINGS: Simulated weight-bearing obtain within air boot on. The ankle joint has an unremarkable appearance. There is healing 1st metatarsal fracture IMPRESSION: . Dictated by: Tan Morataya MD 06/08/2019 15:18 Electronically signed by Tan Morataya MD in [facility] 06/08/2019 15:18
== END ==
PROVIDERS: PCP Physician Assistant; Visit Provider Podiatrist
DX: T14.8XXA Other injury of unspecified body region, initial encounter (principal); S92.002A Unspecified fracture of left calcaneus, initial encounter for closed fracture
CPT/HCPCS: 73610; 73630

== ENCOUNTER → 2019-06-22 14:17 | Outpatient (CLI) | payer MEDICARE, SELFPAY ==
--- NOTE | 2019-06-22 14:23 | XR_ITS ---
PROCEDURE: XR FOOT WT BEARING LT 3V CLINICAL INDICATION: fracture follow up COMPARISON: XR FOOT WT BEARING RT 3V from 04/01/2019 XR FOOT WT BEARING LT 3V from 04/01/2019 XR FOOT WT BEARING LT 3V from 04/29/2019 XR FOOT WT BEARING LT 3V from 06/08/2019 FINDINGS: Healing fractures present at the base of the 1st metatarsal with developing callus formation. This is not significantly changed. There is minimal lateral displacement of the distal fracture fragment. Hallux valgus with osteoarthritis of the 1st MTP joint. The study is obtained through a boot decreasing bony detail. Other findings:None. IMPRESSION: No change minimally displaced healing fracture base of 1st metatarsal Dictated by: Tan Morataya MD 06/22/2019 15:10 Electronically signed by Tan Morataya MD in [facility] 06/22/2019 15:10
== END ==
PROVIDERS: PCP Family Medicine; Visit Provider Podiatrist
DX: S92.312D Displaced fracture of first metatarsal bone, left foot, subsequent encounter for fracture with routine healing (principal)
CPT/HCPCS: 73630

== ENCOUNTER → 2019-08-10 08:47 | Outpatient (CLI) | payer MEDICARE, SELFPAY ==
--- NOTE | 2019-08-10 08:52 | XR_ITS ---
PROCEDURE: XR FOOT WT BEARING LT 3V CLINICAL INDICATION: post-op Pain, postop follow-up COMPARISON: XR FOOT WT BEARING LT 3V from 04/01/2019 XR FOOT WT BEARING LT 3V from 04/29/2019 XR FOOT WT BEARING LT 3V from 06/08/2019 XR FOOT WT BEARING LT 3V from 06/22/2019 FINDINGS: The air boot has been removed. Healing fracture at the base of the 1st metatarsal nondisplaced with developing callus formation. Mild osteoarthritic change with hallux valgus of 1st MTP joint. Generalized osteopenia. Other findings:None. IMPRESSION: Good alignment healing 1st metatarsal fracture Dictated by: Tan Morataya MD 08/10/2019 14:46 Electronically signed by Tan Morataya MD in [place] 08/10/2019 14:46
== END ==
PROVIDERS: PCP Physician Assistant; Visit Provider Podiatrist
DX: Z98.890 Other specified postprocedural states (principal); S92.312D Displaced fracture of first metatarsal bone, left foot, subsequent encounter for fracture with routine healing
CPT/HCPCS: 73630

== ENCOUNTER → 2020-02-17 07:27 | Outpatient (CLI) | payer MEDICARE, SELFPAY ==
[2020-02-17 08:39] LABS: Alanine Aminotransferase 18 U/L (12-78); Albumin Level 4.2 g/dl (3.5-5.0); Albumin/Globulin Ratio 1.4 (1.1-1.8); Alkaline Phosphatase 170 U/L (38-126); Anion Gap 9.1 mEq/L (5-15); Aspartate Amino Transferase 29 U/L (14-36); Bilirubin,Total 0.6 mg/dl (0.2-1.3); Blood Urea Nitrogen 18 mg/dl (7-17); Calcium 9.5 mg/dl (8.4-10.2); Carbon Dioxide 33 mmol/L (22.0-30.0); Chloride 105 mmol/L (98-107); Chol/HDL Ratio 4.1 (1-3.5); Cholesterol 315 mg/dl (140-200); Estimated Glomerular Filt Rate 85 ml/min (>60); GFR (African American) 103 ML/MIN (>60); Glucose 98 mg/dl (74-100); HDL Cholesterol 77 mg/dl (40-60); Potassium 5.1 mmoL/L (3.5-5.1); Sodium 142 mmol/L (136-145); Total Protein,Serum 7.2 g/dl (6.3-8.2); Triglycerides 185 mg/dl (30-150); VLDL Cholesterol 37 mg/dL (0-40)
[2020-02-17 08:51] LABS: Direct LDL Cholesterol 200.21 mg/dL (100-129)
[2020-02-17 08:56] LABS: 25-OH Vitamin D, Total 21.8 ng/mL (30-100)
[2020-02-17 09:10] LABS: Thyroid Stimulating Hormone 1.59 uIU/mL (0.465-4.68)
== END ==
PROVIDERS: Visit Provider Physician Assistant
DX: E78.2 Mixed hyperlipidemia (principal); E55.9 Vitamin D deficiency, unspecified; I10 Essential (primary) hypertension; Z13.29 Encounter for screening for other suspected endocrine disorder
CPT/HCPCS: 36415; 80053; 80061; 82306; 84443

== ENCOUNTER → 2020-08-16 14:02 | Outpatient (CLI) | payer MEDICARE, SELFPAY ==
[2020-08-17 11:40] LABS: Covid-19 Nasal PCR Sendout P&C NEGATIVE
== END ==
PROVIDERS: PCP Physician Assistant; Visit Provider Physician Assistant
DX: Z11.52 Encounter for screening for COVID-19 (principal)
CPT/HCPCS: U0004

== ENCOUNTER → 2020-08-17 10:59 | Outpatient (CLI) | payer MEDICARE, SELFPAY ==
[2020-08-17 12:02] LABS: Basophils # 0.1 K/mm3 (0-0.2); Eosinophils # 0.2 K/mm3 (0.0-0.4); Eosinophils % 5.2 % (0.1-12.0); Hematocrit 45.3 % (37.0-47.0); Hemoglobin 15.1 g/dL (12.2-16.2); Lymphocytes # 1.9 K/mm3 (0.7-4.5); Lymphocytes % 43.4 % (10-50); Mean Corpuscular HGB Conc 33.4 g/dL (31.8-35.4); Mean Corpuscular Hemoglobin 30.4 pg (27.0-31.2); Mean Platelet Volume 7.3 fl (7.4-10.4); Monocytes # 0.3 K/mm3 (0.1-1.0); Neutrophils # 1.9 K/mm3 (1.8-7.8); Neutrophils % 43.4 % (37.0-80.0); Platelet Count 214 K/mm3 (142-424); Red Blood Count 4.98 M/mm3 (4.20-5.40); Red Cell Distribution Width 14.1 % (11.5-17.5); White Blood Count 4.4 K/mm3 (4.8-10.8)
== END ==
PROVIDERS: Visit Provider Physician Assistant
DX: Z11.52 Encounter for screening for COVID-19 (principal); I10 Essential (primary) hypertension
CPT/HCPCS: 36415; 85025

== ENCOUNTER 2020-12-18 10:34 | Emergency (ER) | payer MEDICARE, SELFPAY ==
[2020-12-18 10:41] VITALS: BP 165/94; PULSE 104; RESP 20; O2SAT 94; BMI 31.3
[2020-12-18 11:04] LABS: UTC Strep Screen (Rapid) Negative (Negative)
[2020-12-18 11:05] LABS: UTC Influenza A Antigen Negative (Negative); UTC Influenza B Antigen Negative (Negative)
--- NOTE | 2020-12-18 11:09 | HMH.EDUTC ---
[facility] [place] Clinical Impression: Bronchitis Otitis media Qualifiers: Otitis media type: suppurative Chronicity: acute Laterality: bilateral Recurrence: non-recurrent Spontaneous tympanic membrane rupture: without spontaneous rupture Qualified Code(s): H66.003 - Acute suppurative otitis media without spontaneous rupture of ear drum, bilateral Disposition: Home, Self-Care Condition on Discharge: Good Instructions: Middle Ear Infection, DI for Acute Bronchitis Additional Instructions: Drink plenty of fluids. Take tylenol or ibuprofen for pain or fever. Take the medications as directed. Follow up with your regular doctor. GO TO THE ER FOR ANY WORSENING SYMPTOMS Prescriptions: predniSONE [Prednisone 20mg Tab] 20 mg PO BID 4 Days #8 tab Transmission Status: Received by [id number] Benzonatate [Tessalon Perle 100mg Cap] 100 mg PO TIDP PRN #30 cap PRN Reason: Cough Transmission Status: Received by [facility] Azithromycin [Z-Gabriele 250mg Tab*] 250 mg PO UD DOSE PK #6 tab Transmission Status: Received by [id number] Referrals: Addis Hawk PA [Primary Care Provider] - Time of Disposition: 11:22 Medical Decision Making - Medical Records Medical records reviewed: No: I reviewed the patient's medical records. - Mehdi Inquiry Pt receiving controlled substance: No Vital Signs: 12/18/20 10:41 12/18/20 11:24 Temperature 98 F Temperature Source Oral Pulse Rate 97 H Pulse Rate [Left] 104 H Respiratory Rate 20 19 Blood Pressure 159/89 H Blood Pressure [Right Arm] 165/94 H Blood Pressure Mean [Right Arm] 117 Blood Pressure Source [Right Arm] Automatic Cuff Blood Pressure Position [Right Arm] Sitting 02 Sat by Pulse Oximetry 94 L Oxygen Delivery Method Room Air - Lab Data Lab Results 12/18/20 10:54: Influenza Type A Ag Negative, Influenza Type B Ag Negative 12/18/20 10:54: Strep Scn Rapid Clinic Negative [facility] [place] - General Stated complaint: ear pain, head congestion,sore throat Time Seen by Provider: 12/18/20 11:09 Mode of Arrival: Ambulatory Source of Information: Patient Limitations: No Limitations Description of Symptoms (Recalled from Triage Doc. by RN): pt c/o sinus pressure, sore throat, and cough. pt states she does not want a covid test as she had the vaccine in Sep. pt bp is elevated with no hx. HEENT Symptoms (Recalled from RN notes): Yes (sore throat, nasal congestion and ear ache) Resp Symptoms (Recalled from RN notes): Yes (cough) Skin Symptoms (Recalled from RN notes): No MS Symptoms (Recalled from RN notes): No Functional Status (Recalled from RN notes): na - History of Present Illness Provider Complaint: She states that for the past 2 days she has had chest and sinus congestion. She has also had right ear pain and pressure. - Related Data Home Medications Medication Instructions Recorded Confirmed Gabapentin [Gabapentin 300mg Cap] 1 tab PO TID 11/05/17 08/10/19 Omeprazole [Omeprazole 40mg 1 cap PO DAILY 11/05/17 08/10/19 Capsule] Oxybutynin Chloride [Oxybutynin 5 mg PO BID 11/05/17 08/10/19 Chloride ER] Ropinirole HCl 1.5 tab PO HS 11/05/17 08/10/19 estradioL [Estradiol] 1 tab PO DAILY 11/05/17 08/10/19 Trazodone HCl 300 mg PO TID 07/17/18 08/10/19 aspirin 81 mg tablet,delayed 81 mg PO DAILY 08/11/18 08/10/19 release cholecalciferol (vitamin D3) 125 5,000 unit PO DAILY 08/11/18 08/10/19 mcg (5,000 unit) capsule citalopram 40 mg tablet 20 mg PO DAILY 08/11/18 08/10/19 ibuprofen 200 mg tablet 200 mg PO QID PRN 08/11/18 08/10/19 duloxetine 30 mg capsule,delayed PO cap 03/10/19 08/10/19 release duloxetine 60 mg capsule,delayed PO cap 03/10/19 08/10/19 release rosuvastatin 20 mg tablet PO tab 03/10/19 08/10/19 alendronate 70 mg tablet PO tab 06/08/19 08/10/19 atenolol 100 mg tablet 100 mg PO tab 06/08/19 08/10/19 clopidogrel 75 mg tablet 75 mg PO tab 06/08/19 08/10/19 Previous Rx's
[2020-12-18 11:24] VITALS: BP 159/89; PULSE 97; RESP 19; TEMP 36.6
== END 2020-12-18 11:29 | disposition home or self-care (01) ==
PROVIDERS: Emergency Provider Nurse Practitioner Family; PCP Physician Assistant
DX: J20.9 Acute bronchitis, unspecified (principal); H66.003 Acute suppurative otitis media without spontaneous rupture of ear drum, bilateral; F41.8 Other specified anxiety disorders; E78.5 Hyperlipidemia, unspecified; M81.0 Age-related osteoporosis without current pathological fracture; Z87.891 Personal history of nicotine dependence; Z79.899 Other long term (current) drug therapy
CPT/HCPCS: G0463; 87804; 87880; 99202

== ENCOUNTER → 2021-01-23 10:41 | Outpatient (CLI) | payer MEDICARE, SELFPAY ==
--- NOTE | 2021-01-23 10:43 | MM_ITS ---
PROCEDURE INFORMATION: Exam: MG Screening 3D Mammography Exam date and time: 01/23/2021 10:43 AM Age: 65 years old Clinical indication: Encounter for screening mammogram for malignant neoplasm of breast Positive family history of breast cancer: Mother and sister TECHNIQUE: Imaging protocol: Screening tomosynthesis and 2D mammography including computer-aided detection (CAD) when performed. COMPARISON: MG SCBI MM Dig screening mamm BI w/CAD 11/09/2018 10:40 AM FINDINGS: MAMMOGRAPHY: Breast composition: The breast tissue is heterogeneously dense, which may obscure small masses. Mass: None. Architectural distortion: None. Calcifications: No suspicious calcifications. Asymmetric density: None. Skin thickening: None. Axillary adenopathy: None. IMPRESSION: No mammographic evidence of malignancy. Annual screening is recommended unless otherwise clinically indicated. Given the reported risk factors coupled with the patient's breast density, a breast cancer risk assessment may prove useful for further evaluation. ASSESSMENT: BI-RADS Category 1: Negative
== END ==
PROVIDERS: PCP Physician Assistant; Visit Provider Family Medicine
DX: Z12.31 Encounter for screening mammogram for malignant neoplasm of breast (principal)
CPT/HCPCS: 77063; 77067

== ENCOUNTER → 2021-03-29 12:01 | Outpatient (CLI) | payer MEDICARE, SELFPAY ==
--- NOTE | 2021-03-29 12:09 | XR_ITS ---
PROCEDURE: XR FOOT RT MIN 3V CLINICAL INDICATION: PLANTER FASCITIS OF RT FOOT COMPARISON: CR XR FOOT WT BEARING LT 3V from 04/29/2019 CR XR FOOT WT BEARING LT 3V from 06/08/2019 CR XR FOOT WT BEARING LT 3V from 06/22/2019 CR XR FOOT WT BEARING LT 3V from 08/10/2019 FINDINGS: Mild hallux valgus with bunion formation. No fracture or dislocation. Mild osteoarthritis 1st MTP joint Other findings:No lytic or blastic change. IMPRESSION: Hallux valgus with bunion formation and minimal osteoarthritic change at the 1st MTP joint Dictated by: Tan Morataya MD 03/29/2021 12:41 Tan Morataya MD in [facility] 03/29/2021 12:41
--- NOTE | 2021-03-29 12:09 | XR_ITS ---
PROCEDURE: XR ANKLE LT MIN 3V CLINICAL INDICATION: LT ANKLE INJURY Lateral ankle pain and swelling COMPARISON: CR XR ANKLE WT BEARING LT MIN 3V from 04/29/2019 CR XR ANKLE WT BEARING LT MIN 3V from 06/08/2019 FINDINGS: Prominent osteopenia is noted involving the distal fibula. On the AP view there is a question of a nondisplaced fracture at the distal fibula at the diaphyseal metaphyseal junction. This however could be related to prominent trabeculation. Suggest follow-up exam in 7-10 days. Soft tissue swelling is present medially. The joint spaces are well-preserved. No significant degenerative/arthritic changes. No erosive changes evident. Other findings:None. IMPRESSION: Diffuse osteopenia with possible nondisplaced oblique fracture of the distal fibula versus prominent trabeculation. Dictated by: Tan Morataya MD 03/29/2021 12:44 Tan Morataya MD in [facility] 03/29/2021 12:44
== END ==
PROVIDERS: PCP Physician Assistant; Visit Provider Physician Assistant
DX: S99.912A Unspecified injury of left ankle, initial encounter (principal); M72.2 Plantar fascial fibromatosis
CPT/HCPCS: 73610; 73630

== ENCOUNTER → 2021-04-13 11:05 | Outpatient (CLI) | payer MEDICARE, SELFPAY ==
--- NOTE | 2021-04-13 11:16 | XR_ITS ---
PROCEDURE: XR CHEST PORTABLE CLINICAL HISTORY: Cough and shortness of air COMPARISON: CR CXR CHEST(2 VIEWS-NOT PORTABLE) from 03/21/2017 CT CTAC CTA-CHEST from 05/07/2017 CR [id number] XR ribs RT min 3V w CXR1V from 08/27/2017 CR CXR2 XR chest AP from 11/05/2017 FINDINGS: The cardiomediastinal silhouette and pulmonary vascularity are within normal limits. There are atelectatic changes in both lower lobes. Linear density noted in the right infrahilar region similar to the previous exam. No acute bony abnormalities. IMPRESSION: Bilateral lower lobe atelectatic changes Dictated by: Tan Morataya MD 04/13/2021 12:10 Tan Morataya MD in [facility] 04/13/2021 12:10
[2021-04-13 12:42] LABS: Basophils % 0.8 % (0.1-2.0); Eosinophils # 0.2 K/mm3 (0.0-0.4); Hematocrit 47.8 % (37.0-47.0); Hemoglobin 15.4 g/dL (12.2-16.2); Lymphocytes # 1.2 K/mm3 (0.7-4.5); Lymphocytes % 22.3 % (10-50); Mean Corpuscular HGB Conc 32.1 g/dL (31.8-35.4); Mean Corpuscular Hemoglobin 31.4 pg (27.0-31.2); Mean Corpuscular Volume 97.8 fl (81-99); Mean Platelet Volume 6.7 fl (7.4-10.4); Monocytes # 0.4 K/mm3 (0.1-1.0); Monocytes % 7.4 % (1.7-9.3); Neutrophils # 3.5 K/mm3 (1.8-7.8); Neutrophils % 66.6 % (37.0-80.0); Platelet Count 244 K/mm3 (142-424); Red Blood Count 4.89 M/mm3 (4.20-5.40); White Blood Count 5.3 K/mm3 (4.8-10.8)
== END ==
PROVIDERS: PCP Physician Assistant; Visit Provider Physician Assistant
DX: Z20.822 Contact with and (suspected) exposure to COVID-19 (principal); U07.1 COVID-19
CPT/HCPCS: 36415; 71045; 85025; U0003

== ENCOUNTER 2021-04-17 09:17 | Emergency (ER) | payer MEDICARE, SELFPAY ==
[2021-04-17 09:20] VITALS: BP 181/88; PULSE 122; RESP 23; TEMP 36.8; O2SAT 95; BMI 36.0
--- NOTE | 2021-04-17 09:49 | HMH.EDUTC ---
[facility] – [place] Disposition Clinical Impression: COVID-19 Disposition: Home, Self-Care Condition on Discharge: Good Instructions: DI for COVID-19 (Suspected or Confirmed ), Preventing the Spread of Coronavirus Discharge Instructions Additional Instructions: Drink plenty of fluids. Take tylenol for pain or fever. Return if you begin to have difficulty breathing. Follow up with your regular doctor. GO TO THE ER FOR ANY WORSENING SYMPTOMS Quarantine until you know the results of your covid-19 test. If it is positive, the health department should call you and give you further instructions about your length of Quarantine and other things. Notify your school or workplace of your results and follow their instructions regarding return to work/school. Referrals: Addis Hawk PA [Primary Care Provider] - Time of Disposition: 10:11 Medical Decision Making - Medical Records Medical records reviewed: No: I reviewed the patient's medical records. - Mehdi Inquiry Pt receiving controlled substance: No Vital Signs: 04/17/21 09:20 04/17/21 10:12 Temperature 98.2 F 98.2 F Temperature Source Oral Pulse Rate 122 H Pulse Rate [Right Brachial] 122 H Respiratory Rate 23 23 Blood Pressure 181/88 H Blood Pressure [Left Arm] 181/88 H Blood Pressure Mean [Left Arm] 119 Blood Pressure Source [Left Arm] Automatic Cuff Blood Pressure Position [Left Arm] Sitting 02 Sat by Pulse Oximetry 95 Oxygen Delivery Method Room Air [facility] [place] HPI - General Stated complaint: Covid positive wants to be checked again Time Seen by Provider: 04/17/21 09:49 Mode of Arrival: Ambulatory Source of Information: Patient Limitations: No Limitations Description of Symptoms (Recalled from Triage Doc. by RN): PATIENT TESTED POSITIVE FOR COVID ON FRIDAY 04/13. PATIENT WANTING RE-TESTED. PATIENT DOES REPORT SYMPTOMS OF COUGH, SWEATING AND CONGESTION HEENT Symptoms (Recalled from RN notes): No Resp Symptoms (Recalled from RN notes): Yes Skin Symptoms (Recalled from RN notes): No MS Symptoms (Recalled from RN notes): No Functional Status (Recalled from RN notes): WNL - History of Present Illness Provider Complaint: She tested positive for covid but she does not believe it because she has no symptoms. - Related Data Home Medications Medication Instructions Recorded Confirmed Gabapentin [Gabapentin 300mg Cap] 1 tab PO TID 11/05/17 04/02/21 Omeprazole [Omeprazole 40mg 1 cap PO DAILY 11/05/17 04/02/21 Capsule] Oxybutynin Chloride [Oxybutynin 5 mg PO BID 11/05/17 04/02/21 Chloride ER] Ropinirole HCl 1.5 tab PO HS 11/05/17 04/02/21 estradioL [Estradiol] 1 tab PO DAILY 11/05/17 04/02/21 Trazodone HCl 300 mg PO TID 07/17/18 04/02/21 aspirin 81 mg tablet,delayed 81 mg PO DAILY 08/11/18 04/02/21 release cholecalciferol (vitamin D3) 125 5,000 unit PO DAILY 08/11/18 04/02/21 mcg (5,000 unit) capsule citalopram 40 mg tablet 20 mg PO DAILY 08/11/18 04/02/21 ibuprofen 200 mg tablet 200 mg PO QID PRN 08/11/18 04/02/21 duloxetine 30 mg capsule,delayed PO cap 03/10/19 04/02/21 release duloxetine 60 mg capsule,delayed PO cap 03/10/19 04/02/21 release rosuvastatin 20 mg tablet PO tab 03/10/19 04/02/21 alendronate 70 mg tablet PO tab 06/08/19 04/02/21 atenolol 100 mg tablet 100 mg PO tab 06/08/19 04/02/21 clopidogrel 75 mg tablet 75 mg PO tab 06/08/19 04/02/21 Previous Rx's Medication Instructions Recorded Benzonatate [Tessalon Perle 100mg 100 mg PO TID PRN #15 cap 10/04/19 Cap*] methylPREDNISolone [Medrol 4mg 4 mg PO DIRECTED #21 tab 10/04/19 tab] Benzonatate [Tessalon Perle 100mg 100 mg PO TIDP PRN #30 cap 12/18/20 Cap] meloxicam 7.5 mg tablet 7.5 mg PO DAILY 30 Days #30 tab 04/02/21 methylprednisolone 4 mg tablets in 4 mg PO PER PKG DIR #21 tab 04/02/21 a dose pack Allergies Allergy/AdvReac Type Severity Reaction Status Date / Time meperidine [From DEMEROL] Allergy Mild Verified 04/02/21 13:18
[2021-04-17 10:12] VITALS: BP 181/88; PULSE 122; RESP 23; TEMP 36.8; O2SAT 95
== END 2021-04-17 10:17 | disposition home or self-care (01) ==
PROVIDERS: Emergency Provider Nurse Practitioner Family; PCP Physician Assistant
DX: U07.1 COVID-19 (principal); E78.5 Hyperlipidemia, unspecified; F41.8 Other specified anxiety disorders; M81.0 Age-related osteoporosis without current pathological fracture; Z79.899 Other long term (current) drug therapy
CPT/HCPCS: G0463; 99202; C9803; U0003; U0005

== ENCOUNTER → 2021-04-24 08:06 | Outpatient (CLI) | payer MEDICARE, SELFPAY | PROVIDERS: PCP Physician Assistant; Visit Provider Nurse Practitioner | DX: Z20.822 Contact with and (suspected) exposure to COVID-19 (principal); U07.1 COVID-19 | CPT/HCPCS: C9803; U0003; U0005 ==

== ENCOUNTER → 2021-05-14 08:03 | Outpatient (CLI) | payer MEDICARE, SELFPAY | PROVIDERS: PCP Family Medicine; Visit Provider Nurse Practitioner | DX: Z20.822 Contact with and (suspected) exposure to COVID-19 (principal); U07.1 COVID-19 | CPT/HCPCS: C9803; U0003; U0005 ==

== ENCOUNTER → 2021-05-15 11:03 | Outpatient (CLI) | payer MEDICARE, SELFPAY ==
--- NOTE | 2021-05-15 11:10 | XR_ITS ---
PROCEDURE: XR ANKLE WT BEARING LT MIN 3V CLINICAL INDICATION: fracture followup COMPARISON: CR XR ANKLE WT BEARING LT MIN 3V from 04/29/2019 CR XR ANKLE WT BEARING LT MIN 3V from 06/08/2019 CR XR ANKLE LT MIN 3V from 03/29/2021 FINDINGS: Ankle mortise is preserved in the tibial plafond and talar dome have an unremarkable appearance. No acute fracture or dislocation is evident. No lytic or blastic change. There is good alignment. IMPRESSION: No acute findings. Dictated by: Tan Morataya MD 05/15/2021 12:15 Tan Morataya MD in [facility] 05/15/2021 12:15
== END ==
PROVIDERS: PCP Physician Assistant; Visit Provider Podiatrist
DX: T14.8XXA Other injury of unspecified body region, initial encounter; S99.912A Unspecified injury of left ankle, initial encounter
CPT/HCPCS: 73610

== ENCOUNTER → 2021-05-17 07:53 | Outpatient (CLI) | payer MEDICARE, SELFPAY ==
--- NOTE | 2021-05-17 08:01 | XR_ITS ---
PROCEDURE: XR CHEST PORTABLE CLINICAL HISTORY: COVID TESTING COMPARISON: CT CTAC CTA-CHEST from 05/07/2017 CR [id number] XR ribs RT min 3V w CXR1V from 08/27/2017 CR CXR2 XR chest AP from 11/05/2017 CR XR CHEST PORTABLE from 04/13/2021 FINDINGS: The cardiomediastinal silhouette and pulmonary vascularity are within normal limits. There are low lung volumes with atelectatic changes in the lower lobes bilaterally. Thin somewhat curvilinear opacities are noted in the left and right perihilar region unchanged. No acute bony abnormalities. IMPRESSION: Bibasilar atelectatic change Dictated by: Tan Morataya MD 05/17/2021 08:31 Tan Morataya MD in [facility] 05/17/2021 08:31
[2021-05-17 08:33] LABS: Basophils # 0.1 K/mm3 (0-0.2); Basophils % 0.7 % (0.1-2.0); Eosinophils # 0.1 K/mm3 (0.0-0.4); Eosinophils % 1.2 % (0.1-12.0); Hematocrit 42.1 % (37.0-47.0); Hemoglobin 13.6 g/dL (12.2-16.2); Lymphocytes # 2.7 K/mm3 (0.7-4.5); Lymphocytes % 37.2 % (10-50); Mean Corpuscular HGB Conc 32.3 g/dL (31.8-35.4); Mean Corpuscular Hemoglobin 31.2 pg (27.0-31.2); Mean Corpuscular Volume 96.6 fl (81-99); Mean Platelet Volume 7.7 fl (7.4-10.4); Monocytes # 0.4 K/mm3 (0.1-1.0); Monocytes % 5.8 % (1.7-9.3); Platelet Count 238 K/mm3 (142-424); Red Blood Count 4.36 M/mm3 (4.20-5.40); Red Cell Distribution Width 14.1 % (11.5-17.5); White Blood Count 7.2 K/mm3 (4.8-10.8)
[2021-05-17 08:43] LABS: Chloride 105 mmol/L (98-107); Potassium 3.7 mmoL/L (3.5-5.1); Sodium 138 mmol/L (136-145)
[2021-05-17 08:45] LABS: Alanine Aminotransferase 14 U/L (12-78); Aspartate Amino Transferase 26 U/L (14-36); Blood Urea Nitrogen 17 mg/dl (7-17); Estimated Glomerular Filt Rate 101 ml/min (>60); GFR (African American) 122 ML/MIN (>60)
[2021-05-17 08:46] LABS: Albumin/Globulin Ratio 1.3 (1.1-1.8); Alkaline Phosphatase 84 U/L (38-126); Anion Gap 10.7 mEq/L (5-15); Bilirubin,Total 0.3 mg/dl (0.2-1.3); Carbon Dioxide 26 mmol/L (22.0-30.0); Globulin 3.1 g/dL (1.3-3.2); Glucose 88 mg/dl (74-100); Total Protein,Serum 7.1 g/dl (6.3-8.2)
== END ==
PROVIDERS: PCP Physician Assistant; Visit Provider Physician Assistant
DX: Z20.822 Contact with and (suspected) exposure to COVID-19 (principal); U07.1 COVID-19
CPT/HCPCS: 36415; 71045; 80053; 85025

== ENCOUNTER → 2021-05-24 13:37 | Outpatient (CLI) | payer MEDICARE, SELFPAY | PROVIDERS: PCP Physician Assistant; Visit Provider Physician Assistant | DX: U07.1 COVID-19 | CPT/HCPCS: C9803; U0003; U0005 ==

== ENCOUNTER 2021-06-06 10:39 | Emergency (ER) | payer MEDICARE, SELFPAY ==
[2021-06-06 10:55] VITALS: BP 102/86; PULSE 74; RESP 19; TEMP 36.8; O2SAT 100; BMI 33.2
--- NOTE | 2021-06-06 11:42 | HMH.EDUTC ---
[facility] [place] Clinical Impression: Sinusitis Qualifiers: Sinusitis location: unspecified location Chronicity: unspecified Qualified Code(s): J32.9 - Chronic sinusitis, unspecified Disposition: Home, Self-Care Condition on Discharge: Good Instructions: Sinusitis, DI for Sinusitis Additional Instructions: *Monitor Temp, Over the counter Motrin or Tylenol as directed/as needed Tylenol every 4 hours and Motrin every 6 hours (as long as your family doctor has told you that you can take it) for fever or pain. and straight to ER if unable to lower temp less than 101.0 after medication given *Warm salt water gargles may help to soothe the throat *Throat Lozenges *Warm fluids like tea with honey may help to soothe the throat *Sleep elevated *Humidifier/Vaporizer *Flonase 2 sprays in each nostril daily but be aware that it may take 2-3 days before you notice improvement Follow up IMMEDIATELY for new or worsening symptoms or no Noticeable improvement over the next 48-72 hours. 911 for difficulty breathing or swallowing Prescriptions: Amoxicillin/Potassium Clav [Augmentin 875-125 Tablet] 1 tab PO Q12H 7 Days #14 tab Transmission Status: P[facility] to [email or web address] methylPREDNISolone [Medrol 4mg tab] 4 mg PO DIRECTED #21 tab Transmission Status: P[facility] to [email or web address] Referrals: Addis Hawk PA [Primary Care Provider] - As needed Time of Disposition: 11:48 Medical Decision Making - Mehdi Inquiry Pt receiving controlled substance: No Mehdi was queried for this patient: No Vital Signs: 06/06/21 10:55 Temperature 98.3 F Temperature Source Oral Pulse Rate [Right Brachial] 74 Respiratory Rate 19 Blood Pressure [Right Arm] 102/86 L Blood Pressure Mean [Right Arm] 91 Blood Pressure Source [Right Arm] Automatic Cuff Blood Pressure Position [Right Arm] Sitting 02 Sat by Pulse Oximetry 100 Oxygen Delivery Method Room Air [facility] [place] - General Stated complaint: weakness, cough, nose bleeds, adbd pain Time Seen by Provider: 06/06/21 11:42 Mode of Arrival: Ambulatory Source of Information: Patient Limitations: No Limitations Description of Symptoms (Recalled from Triage Doc. by RN): PATIENT C/O COUGH AND SINUS PRESSURE X 2 DAYS HEENT Symptoms (Recalled from RN notes): Yes Resp Symptoms (Recalled from RN notes): Yes Skin Symptoms (Recalled from RN notes): No MS Symptoms (Recalled from RN notes): No Functional Status (Recalled from RN notes): WNL - History of Present Illness Provider Complaint: Patient states that she thinks she may have a sinus infection States that she has been having sinus congestion and pressure on and off for over a week but for the last couple of days it has got worse States that she is having pressure like feeling behind her eyes and feeling like it is draining in the back of her throat so she came in - Related Data Home Medications Medication Instructions Recorded Confirmed Gabapentin [Gabapentin 300mg Cap] 1 tab PO TID 11/05/17 05/15/21 Omeprazole [Omeprazole 40mg 1 cap PO DAILY 11/05/17 05/15/21 Capsule] Oxybutynin Chloride [Oxybutynin 5 mg PO BID 11/05/17 05/15/21 Chloride ER] Ropinirole HCl 1.5 tab PO HS 11/05/17 05/15/21 estradioL [Estradiol] 1 tab PO DAILY 11/05/17 05/15/21 Trazodone HCl 300 mg PO TID 07/17/18 05/15/21 aspirin 81 mg tablet,delayed 81 mg PO DAILY 08/11/18 05/15/21 release cholecalciferol (vitamin D3) 125 5,000 unit PO DAILY 08/11/18 05/15/21 mcg (5,000 unit) capsule citalopram 40 mg tablet 20 mg PO DAILY 08/11/18 05/15/21 ibuprofen 200 mg tablet 200 mg PO QID PRN 08/11/18 05/15/21 duloxetine 30 mg capsule,delayed PO cap 03/10/19 05/15/21 release duloxetine 60 mg capsule,delayed PO cap 03/10/19 05/15/21 release rosuvastatin 20 mg tablet PO tab 03/10/19 05/15/21 alendronate 70 mg tablet PO tab 06/08/19 05/15/21 atenolol 100 mg tablet 100 mg PO tab 06/08/19 05/15/21 clopidogrel 75 mg tablet 75 mg PO tab 06/08/19
[2021-06-06 11:53] VITALS: BP 102/86; PULSE 74; RESP 19; TEMP 36.8; O2SAT 100
== END 2021-06-06 11:57 | disposition home or self-care (01) ==
PROVIDERS: Emergency Provider Nurse Practitioner; PCP Physician Assistant
DX: J32.9 Chronic sinusitis, unspecified (principal); F41.8 Other specified anxiety disorders; E78.5 Hyperlipidemia, unspecified; M81.0 Age-related osteoporosis without current pathological fracture; Z87.891 Personal history of nicotine dependence
CPT/HCPCS: G0463; 99202

== ENCOUNTER 2021-09-01 15:39 | Emergency (ER) | payer MEDICARE, SELFPAY ==
--- NOTE | 2021-09-01 15:43 | XR_ITS ---
PROCEDURE INFORMATION: Exam: XR Right Hand Exam date and time: 09/01/2021 3:43 PM Age: 66 years old Clinical indication: Injury or trauma; Other: Smashed finger in safe; Crushing and laceration; Right; Middle finger; Injury date: 09/01/21; Injury details: PT smashed the tip of her third finger in a safe; Additional info: Fall TECHNIQUE: Imaging protocol: XR Right hand. Views: 3 or more views. COMPARISON: No relevant prior studies available. FINDINGS: Bones/joints: Crush injury distal tuft distal phalanx of middle finger with mild separation of the fragments. Soft tissues: Soft tissue swelling. IMPRESSION: Crush injury distal tuft distal phalanx of middle finger with mild separation of the fragments.
[2021-09-01 16:19] VITALS: BP 218/120; PULSE 94; RESP 22; O2SAT 97; BMI 31.3
--- NOTE | 2021-09-01 16:45 | HMH.EDUTC ---
[facility] [place] Clinical Impression: Open fracture of finger, distal phalanx Qualifiers: Encounter type: initial encounter Finger: middle finger Fracture alignment: nondisplaced Laterality: right Qualified Code(s): S62.662B - Nondisplaced fracture of distal phalanx of right middle finger, initial encounter for open fracture Disposition: Home, Self-Care Condition on Discharge: Good Instructions: Finger Fracture, DI for Finger Fracture Additional Instructions: Rest the extremity, Elevate the extremity as tolerated while you are resting. Take ibuprofen for pain. I sent in a prescription to your pharmacy. Follow up with Dr. Butcher (orthopedics). I put in a referral and called him about your injury and your x-ray, but you will need to call his office and schedule an appointment. Please call on Friday to get this scheduled. Follow up with your regular doctor. GO TO THE ER FOR ANY WORSENING SYMPTOMS Prescriptions: Ibuprofen [Ibuprofen 800mg Tablet] 800 mg PO Q8HP PRN #30 tab PRN Reason: Moderate Pain Transmission Status: Received by [id number] cephALEXin [cephALEXin 500mg capsule] 500 mg PO Q6H 10 Days #40 cap Transmission Status: Received by [id number] Referrals: Addis Hawk PA [Primary Care Provider] - Jim Butcher MD [Staff Physician] - Time of Disposition: 17:32 Medical Decision Making - Medical Records Medical records reviewed: No: I reviewed the patient's medical records. - Mehdi Inquiry Pt receiving controlled substance: No Vital Signs: 09/01/21 16:19 09/01/21 17:55 Temperature 0 F L Pulse Rate 0 L Pulse Rate [Left] 94 H Respiratory Rate 22 0 L Blood Pressure 0/0 L Blood Pressure [Right Arm] 218/120 H Blood Pressure Mean [Right Arm] 152 02 Sat by Pulse Oximetry 97 Orders (Tests/Meds): ED MEDICATIONS Discontinued Medications Generic Name Dose Route Start Last Admin Trade Name Freq PRN Reason Stop Dose Admin Ketorolac Tromethamine 60 mg 09/01/21 17:34 09/01/21 17:35 Ketorolac 60mg/2ml Vial IM 09/01/21 17:35 60 mg ONCE ONE Administration - Radiology Data #1 Image(s): Hand Image Reviewed: Yes I reviewed the patient's radiology image, Yes I have reviewed radiologist's interpretation Preliminary Findings: Abnormal PROCEDURE INFORMATION: Exam: XR Right Hand Exam date and time: 09/01/2021 3:43 PM Age: 66 years old Clinical indication: Injury or trauma; Other: Smashed finger in safe; Crushing and laceration; Right; Middle finger; Injury date: 09/01/21; Injury details: PT smashed the tip of her third finger in a safe; Additional info: Fall TECHNIQUE: Imaging protocol: XR Right hand. Views: 3 or more views. COMPARISON: No relevant prior studies available. FINDINGS: Bones/joints: Crush injury distal tuft distal phalanx of middle finger with mild separation of the fragments. Soft tissues: Soft tissue swelling. IMPRESSION: Crush injury distal tuft distal phalanx of middle finger with mild separation of the fragments. [facility] [place] HPI - General Stated complaint: rt hand smashed finger Time Seen by Provider: 09/01/21 16:45 Mode of Arrival: Ambulatory Source of Information: Patient Limitations: No Limitations Description of Symptoms (Recalled from Triage Doc. by RN): pt states a safe door fell closed on the tip of her R middle finger. pts nail is purple and bleeding the pad of her middle finger is swollen and purple. pt appears to be in severe pain. HEENT Symptoms (Recalled from RN notes): No Resp Symptoms (Recalled from RN notes): No Skin Symptoms (Recalled from RN notes): Yes MS Symptoms (Recalled from RN notes): Yes Functional Status (Recalled from RN notes): wnl - History of Present Illness Provider Complaint: She states that she was moving a small safe at her home. The door of the safe slammed shut and caught the end of h
[2021-09-01 17:55] VITALS: BP 0/0; PULSE 0; RESP 0; TEMP -17.7; TEMP 0
== END 2021-09-01 17:56 | disposition home or self-care (01) ==
PROVIDERS: Emergency Provider Nurse Practitioner Family; PCP Physician Assistant
DX: S62.662B Nondisplaced fracture of distal phalanx of right middle finger, initial encounter for open fracture (principal); W23.0XXA Caught, crushed, jammed, or pinched between moving objects, initial encounter; Y92.89 Other specified places as the place of occurrence of the external cause; F41.8 Other specified anxiety disorders; E78.5 Hyperlipidemia, unspecified; M81.0 Age-related osteoporosis without current pathological fracture
CPT/HCPCS: G0463; 73130; 96372; 99202

== ENCOUNTER → 2021-09-11 09:04 | Outpatient (CLI) | payer MEDICARE, SELFPAY ==
--- NOTE | 2021-09-11 09:14 | XR_ITS ---
FINAL REPORT CLINICAL HISTORY: F/u Rt middle finger injury COMPARISON: 09/01/2021 FINDINGS: RIGHT HAND Three views demonstrate a comminuted fracture involving the tuft of the third distal phalanx. There is no significant callus formation. There is no change in alignment. IMPRESSION: No significant change in the fracture as above. Reviewed, Interpreted and Dictated by Santosh Wan III, MD Transcribed by Arina Garcia Authenticated by Santosh Wan III, MD on 09/11/2021 11:32:[address] [facility]
== END ==
PROVIDERS: PCP Physician Assistant; Visit Provider Orthopaedic Surgery
DX: S69.91XA Unspecified injury of right wrist, hand and finger(s), initial encounter (principal)
CPT/HCPCS: 73130

== ENCOUNTER 2021-10-04 17:04 | Emergency (ER) | payer MEDICARE, SELFPAY ==
[2021-10-04 18:03] VITALS: BP 159/87; PULSE 69; RESP 19; TEMP 36.9; O2SAT 95; BMI 31.3
[2021-10-04 18:24] LABS: UTC Strep Screen (Rapid) Negative (Negative)
--- NOTE | 2021-10-04 19:03 | HMH.EDUTC ---
[facility] – [place] Disposition Clinical Impression: Sinusitis Qualifiers: Sinusitis location: unspecified location Chronicity: acute Recurrence: non-recurrent Qualified Code(s): J01.90 - Acute sinusitis, unspecified Disposition: Home, Self-Care Condition on Discharge: Good Instructions: DI for Sinusitis Additional Instructions: Drink plenty of fluids. Take tylenol or ibuprofen for pain or fever. Take the medications as directed. Follow up with your regular doctor. GO TO THE ER FOR ANY WORSENING SYMPTOMS Prescriptions: Azithromycin [Z-Gabriele 250mg Tab*] 250 mg PO UD DOSE PK #6 tab Transmission Status: Received by [id number] Referrals: Addis Hawk PA [Primary Care Provider] - Time of Disposition: 19:06 Medical Decision Making - Medical Records Medical records reviewed: No: I reviewed the patient's medical records. - Mehdi Inquiry Pt receiving controlled substance: No Vital Signs: 10/04/21 18:03 10/04/21 19:12 Temperature 98.5 F 98.5 F Temperature Source Oral Pulse Rate 69 Pulse Rate [Left] 69 Respiratory Rate 19 19 Blood Pressure 159/87 H Blood Pressure [Right Arm] 159/87 H Blood Pressure Mean [Right Arm] 111 02 Sat by Pulse Oximetry 95 - Lab Data Lab results reviewed: Yes: I reviewed the patient's lab results. Lab Results 10/04/21 18:08: Strep Scn Rapid Clinic Negative Orders (Tests/Meds): ORDERS Category Date Time Status Strep Screen Confirmation Stat Micro 10/04/21 18:08 Received [facility] [place] HPI - General Stated complaint: cough, diarrhea Time Seen by Provider: 10/04/21 19:03 Mode of Arrival: Ambulatory Source of Information: Patient Limitations: No Limitations Description of Symptoms (Recalled from Triage Doc. by RN): pt c/o a sore throat and cough x2 days. HEENT Symptoms (Recalled from RN notes): Yes Resp Symptoms (Recalled from RN notes): Yes Skin Symptoms (Recalled from RN notes): No MS Symptoms (Recalled from RN notes): No Functional Status (Recalled from RN notes): wnl - History of Present Illness Provider Complaint: She c/o sinus congestion for the past 2 days. - Related Data Home Medications Medication Instructions Recorded Confirmed Gabapentin [Gabapentin 300mg Cap] 1 tab PO TID 11/05/17 09/05/21 Omeprazole [Omeprazole 40mg 1 cap PO DAILY 11/05/17 09/05/21 Capsule] Oxybutynin Chloride [Oxybutynin 5 mg PO BID 11/05/17 09/05/21 Chloride ER] Ropinirole HCl 1.5 tab PO HS 11/05/17 09/05/21 estradioL [Estradiol] 1 tab PO DAILY 11/05/17 09/05/21 aspirin 81 mg tablet,delayed 81 mg PO DAILY 08/11/18 09/05/21 release cholecalciferol (vitamin D3) 125 5,000 unit PO DAILY 08/11/18 09/05/21 mcg (5,000 unit) capsule citalopram 40 mg tablet 20 mg PO DAILY 08/11/18 09/05/21 duloxetine 30 mg capsule,delayed PO cap 03/10/19 09/05/21 release duloxetine 60 mg capsule,delayed PO cap 03/10/19 09/05/21 release rosuvastatin 20 mg tablet PO tab 03/10/19 09/05/21 alendronate 70 mg tablet PO tab 06/08/19 09/05/21 atenolol 100 mg tablet 100 mg PO tab 06/08/19 09/05/21 clopidogrel 75 mg tablet 75 mg PO tab 06/08/19 09/05/21 cephalexin 500 mg capsule 500 mg PO Q6H cap 09/05/21 09/05/21 isosorbide mononitrate 30 mg mg PO 09/05/21 09/05/21 tablet,extended release 24 hr trazodone 100 mg tablet 100 mg PO DAILY tab 09/05/21 09/05/21 tramadol 50 mg tablet 50 mg PO .prn tab 09/11/21 09/11/21 Previous Rx's Medication Instructions Recorded meloxicam 7.5 mg tablet 7.5 mg PO DAILY 30 Days #30 tab 04/02/21 Ibuprofen [Ibuprofen 800mg 800 mg PO Q8HP PRN #30 tab 09/01/21 Tablet] Azithromycin [Z-Gabriele 250mg Tab*] 250 mg PO UD DOSE PK #6 tab 10/04/21 Allergies Allergy/AdvReac Type Severity Reaction Status Date / Time meperidine [From DEMEROL] Allergy Mild Verified 09/05/21 10:29 codeine Allergy Verified 09/05/21 10:29 doravirine Allergy Verified 09/05/21 10:29 - Worker's Comp Is this a Worker's Comp case?: No [facility]
[2021-10-04 19:12] VITALS: BP 159/87; PULSE 69; RESP 19; TEMP 36.9
== END 2021-10-04 19:13 | disposition home or self-care (01) ==
PROVIDERS: Emergency Provider Nurse Practitioner Family; PCP Physician Assistant
DX: J01.90 Acute sinusitis, unspecified (principal); R19.7 Diarrhea, unspecified; J02.9 Acute pharyngitis, unspecified; R50.9 Fever, unspecified; F32.A Depression, unspecified; F41.9 Anxiety disorder, unspecified; E78.5 Hyperlipidemia, unspecified; M81.8 Other osteoporosis without current pathological fracture; Z79.02 Long term (current) use of antithrombotics/antiplatelets; Z79.82 Long term (current) use of aspirin; Z79.890 Hormone replacement therapy; Z79.899 Other long term (current) drug therapy; Z88.5 Allergy status to narcotic agent; Z88.8 Allergy status to other drugs, medicaments and biological substances; Z87.891 Personal history of nicotine dependence; Z83.3 Family history of diabetes mellitus; Z83.438 Family history of other disorder of lipoprotein metabolism and other lipidemia; Z80.9 Family history of malignant neoplasm, unspecified
CPT/HCPCS: 87880; 99213; G0463

== ENCOUNTER → 2021-10-25 11:25 | Outpatient (CLI) | payer MEDICARE, SELFPAY ==
[2021-10-25 12:55] LABS: Basophils # 0.1 K/mm3 (0-0.2); Basophils % 2.1 % (0.1-2.0); Eosinophils # 0.2 K/mm3 (0.0-0.4); Eosinophils % 3.3 % (0.1-12.0); Hematocrit 45.5 % (37.0-47.0); Hemoglobin 14.4 g/dL (12.2-16.2); Lymphocytes # 2.2 K/mm3 (0.7-4.5); Lymphocytes % 40.7 % (10-50); Mean Corpuscular HGB Conc 31.7 g/dL (31.8-35.4); Monocytes # 0.4 K/mm3 (0.1-1.0); Monocytes % 6.5 % (1.7-9.3); Neutrophils # 2.6 K/mm3 (1.8-7.8); Neutrophils % 47.4 % (37.0-80.0); Platelet Count 265 K/mm3 (142-424); Red Blood Count 4.64 M/mm3 (4.20-5.40); Red Cell Distribution Width 13.1 % (11.5-17.5); White Blood Count 5.4 K/mm3 (4.8-10.8)
== END ==
PROVIDERS: PCP Physician Assistant; Visit Provider Physician Assistant
DX: U07.1 COVID-19 (principal)
CPT/HCPCS: 36415; 85025; C9803; U0003; U0005

== ENCOUNTER 2022-02-01 14:10 | Emergency (ER) | payer MEDICARE, SELFPAY ==
[2022-02-01 14:10] VITALS: BP 134/82; PULSE 80; RESP 16; TEMP 36.6; O2SAT 98; BMI 34.4
--- NOTE | 2022-02-01 14:16 | ECG_ITS ---
APPROVED REPORT Exam: Resting ECG HR:76 bpm ECG Measurements Heart Rate 76 AXES IN 154 P 18 QRSd 90 QRS 8 QT 367 T 3 QTc 397 Conclusion SINUS RHYTHM SEPTAL MYOCARDIAL INFARCTION , OF INDETERMINATE AGE [40+ ms Q WAVE IN V1/V2] ABNORMAL ECG UNCONFIRMED REPORT Electronically signed by : Edmond Key MD 02/01/2022 16:57:54
--- NOTE | 2022-02-01 14:27 | PC.NURSE ---
MARCUS MCCLURE at
--- NOTE | 2022-02-01 14:33 | HMH.EDNEU ---
ED Disposition Clinical Impression: Neuropathy, ulnar nerve Qualifiers: Laterality: left Qualified Code(s): G56.22 - Lesion of ulnar nerve, left upper limb Disposition: Home, Self-Care Condition on Discharge: Fair Instructions: Peripheral Neuropathy Additional Instructions: Follow-up with your primary care physician as needed. Return to the emergency department if your symptoms worsen. Take all your medications as prescribed. Referrals: Addis Hwak PA [Primary Care Provider] - - Critical Care Critical Care Time: No Attestation: On 02/01/22, the high probability of a clinically significant, sudden or life threatening deterioration of the following system(s) required my full and direct attention, intervention and personal management. The time I documented below is in addition to time spent performing reported procedures but includes the following listed in this critical care notation. Medical Decision Making - Medical Records Medical records reviewed: Yes: I reviewed the patient's medical records. - Mehdi Inquiry Pt receiving controlled substance: No Vital Signs: 02/01/22 14:10 02/01/22 15:11 Temperature 98 F Temperature Source Oral Pulse Rate 77 Pulse Rate [Radial] 80 Respiratory Rate 16 20 Blood Pressure 165/113 H Blood Pressure [Right Arm] 134/82 Blood Pressure Mean [Right Arm] 99 Blood Pressure Source Automatic Cuff Blood Pressure Position Sitting Blood Pressure Position [Right Arm] Sitting 02 Sat by Pulse Oximetry 98 94 L Oxygen Delivery Method Room Air Room Air - Lab Data Lab Results 02/01/22 14:30: WBC 5.6, RBC 4.47, Hgb 13.2, Hct 42.9, MCV 96.0, MCH 29.6, MCHC 30.9 L, RDW 13.2, Plt Count 265, MPV 7.7, Neut % (Auto) 47.1, Lymph % (Auto) 37.0, Johnston % (Auto) 7.5, Eos % (Auto) 4.8, Baso % (Auto) 3.5 H, Neut # (Auto) 2.6, Lymph # (Auto) 2.1, Johnston # (Auto) 0.4, Eos # (Auto) 0.3, Baso # (Auto) 0.2 02/01/22 14:30: Sodium 136, Potassium 3.7, Chloride 103, Carbon Dioxide 29, Anion Gap 7.7, BUN 22 H, Creatinine 0.80, Estimated Creat Clear 90, Estimated GFR 72, Est GFR ( Amer) 87, Glucose 110 H, Calcium 9.4, Total Bilirubin 0.4, AST 53 H, ALT 26, Alkaline Phosphatase 82, Total Protein 7.0, Albumin 4.2, Globulin 2.8, Albumin/Globulin Ratio 1.5 02/01/22 14:30: PT 11.6, INR 1.03, APTT 31.2 H Result diagrams: 02/01/22 14:30 02/01/22 14:30 - CT Data CT Scan: Head Time Received: 16:[address] Reviewed: Yes: I have viewed the radiologist's interpretation Preliminary Findings: Normal/NAD - ECG Data Tracing #1 I reviewed this ECG and interpreted as documented below: The patient is EKG was performed at 1416 p.m. Is a normal sinus rhythm with a ventricular rate of 76 bpm. There are some Q waves in V1 and V2. There is no evidence of acute ischemia or dysrhythmia. The axes are normal. Normal Sinus Rhythm: Yes Medical Decision Narrative: The patient's work-up in the emergency department did not reveal any life-threatening or dangerous causes. CT of the head was unremarkable with the exception of some atrophy. No focal stroke was noted. The patient's symptoms are most consistent with a peripheral ulnar neuropathy. In fact, the patient's symptoms resolved while the patient was in the emergency department. She also complains of some left-sided facial tingling. However, she has been diagnosed with trigeminal neuralgia in the past. I explained to the patient that she needs to keep all follow-up appointments and do the MRI for which she is awaiting preapproval. The patient has agreed to do so. Neuro HPI - General Stated Complaint: stroke symptoms Time Seen by Provider: 02/01/22 14:33 Mode of Arrival: Ambulatory Source of Information: Patient Limitations: No Limitations - History of Present Illness HPI Narrative: The patient presents to the emergency department with a 5 to 6-day history of numbness of her left fourth and fifth fingers. She also complains of some numbness on
--- NOTE | 2022-02-01 14:38 | CT_ITS ---
FINAL REPORT CLINICAL HISTORY: paresthesias on left side. Pt states that from her digits of her left hand to her elbow are numb, along with the left side of her face since Friday or Friday of this week. COMPARISON: 09/11/2021 FINDINGS: Axial images of the head were obtained without contrast. Coronal reformatted images were also obtained. This study was performed with techniques to keep radiation doses as low as reasonably achievable (ALARA). Individualized dose reduction techniques using automated exposure control or adjustment of mA and/or kV according to the patient''s size were employed. There is generalized age-appropriate atrophy. Periventricular low-attenuation areas are seen consistent with mild chronic ischemic changes. There is no evidence of intracranial hemorrhage or mass. There is no evidence of acute infarct. There is no evidence of shift of the midline structures. No skull abnormality is seen on the bone window images. IMPRESSION: Atrophy and mild periventricular chronic ischemic changes. No acute intracranial abnormality identified. Reviewed, Interpreted and Dictated by Santosh Wan III, MD Transcribed by Arina Garcia Authenticated and [facility]
--- NOTE | 2022-02-01 14:40 | PC.NURSE ---
checked on pt at this time, pt states no needs
[2022-02-01 14:46] LABS: Basophils # 0.2 K/mm3 (0-0.2); Basophils % 3.5 % (0.1-2.0); Eosinophils # 0.3 K/mm3 (0.0-0.4); Eosinophils % 4.8 % (0.1-12.0); Hematocrit 42.9 % (37.0-47.0); Hemoglobin 13.2 g/dL (12.2-16.2); Lymphocytes # 2.1 K/mm3 (0.7-4.5); Mean Corpuscular HGB Conc 30.9 g/dL (31.8-35.4); Mean Corpuscular Hemoglobin 29.6 pg (27.0-31.2); Mean Platelet Volume 7.7 fl (7.4-10.4); Monocytes # 0.4 K/mm3 (0.1-1.0); Monocytes % 7.5 % (1.7-9.3); Neutrophils # 2.6 K/mm3 (1.8-7.8); Neutrophils % 47.1 % (37.0-80.0); Platelet Count 265 K/mm3 (142-424); Red Blood Count 4.47 M/mm3 (4.20-5.40); Red Cell Distribution Width 13.2 % (11.5-17.5); White Blood Count 5.6 K/mm3 (4.8-10.8)
[2022-02-01 14:47] LABS: Chloride 103 mmol/L (98-107)
[2022-02-01 14:48] LABS: Potassium 3.7 mmoL/L (3.5-5.1); Sodium 136 mmol/L (136-145)
--- NOTE | 2022-02-01 14:48 | PC.NURSE ---
pt in radiology
--- NOTE | 2022-02-01 14:48 | PC.NURSE ---
pt to CT with hitch technician by wheelchair
[2022-02-01 14:50] LABS: Alanine Aminotransferase 26 U/L (12-78); Albumin Level 4.2 g/dl (3.5-5.0); Albumin/Globulin Ratio 1.5 (1.1-1.8); Alkaline Phosphatase 82 U/L (38-126); Anion Gap 7.7 mEq/L (5-15); Aspartate Amino Transferase 53 U/L (14-36); Bilirubin,Total 0.4 mg/dl (0.2-1.3); Blood Urea Nitrogen 22 mg/dl (7-17); Carbon Dioxide 29 mmol/L (22.0-30.0); Creatinine Clearance Estimated 90 mL/min (50-200); Estimated Glomerular Filt Rate 72 ml/min (>60); GFR (African American) 87 ML/MIN (>60); Globulin 2.8 g/dL (1.3-3.2); Glucose 110 mg/dl (74-100)
[2022-02-01 14:51] LABS: Calcium 9.4 mg/dl (8.4-10.2)
[2022-02-01 14:53] LABS: Activated Partial Thrombo Time 31.2 seconds (22.8-30.6); INR 1.03 (0.9-1.1); Prothrombin Time 11.6 seconds (10.1-12.5)
[2022-02-01 15:11] VITALS: BP 165/113; PULSE 77; RESP 20; O2SAT 94
--- NOTE | 2022-02-01 15:34 | PC.NURSE ---
pt given crackers and diet drink
[2022-02-01 16:18] VITALS: BP 141/81; PULSE 79; RESP 18; TEMP 36.7; O2SAT 96
== END 2022-02-01 16:26 | disposition home or self-care (01) ==
PROVIDERS: Emergency Provider Emergency Medicine; PCP Physician Assistant
DX: G56.22 Lesion of ulnar nerve, left upper limb (principal)
CPT/HCPCS: 70450; 80053; 85025; 85610; 85730; 93005; 99284

== ENCOUNTER → 2022-02-25 12:57 | Outpatient (CLI) | payer MEDICARE, SELFPAY ==
--- NOTE | 2022-02-25 13:02 | MR_ITS ---
FINAL REPORT TECHNIQUE: Multiplanar and multisequence imaging of the brain was obtained before and after contrast administration. CLINICAL HISTORY: LT ARM, FACIAL, AND LEG WEAKNESS. NUMBNESS IN 4TH-5TH DIGITS OF LEFT HAND. 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 RIGHT SIDED NECK AND HEAD PAIN. SYMPTOMS [id number]. HEADACHE. 20ML PROHANCE GIVEN. FINDINGS: The gyri and sulci are within normal limits for age. There is no mass effect or midline shift. There are bilateral periventricular and subcortical white matter changes with a frontal lobe predominance. No hydrocephalus. The cerebellum and brainstem have a normal appearance. There are no areas of restricted diffusion on diffusion weighted images to suggest acute infarct. Soft tissues are without acute abnormality. No pathologic contrast enhancement is identified. IMPRESSION: No acute intracranial abnormality and no pathologic contrast enhancement. White matter changes which could be related to chronic small vessel ischemia or demyelination. Reviewed, Interpreted and Dictated by Wandy Miranda MD Transcribed by Jay Haji Authenticated and [facility]
== END ==
PROVIDERS: PCP Physician Assistant; Visit Provider Physician Assistant
DX: R29.898 Other symptoms and signs involving the musculoskeletal system (principal); R53.1 Weakness; R20.0 Anesthesia of skin
CPT/HCPCS: 70553; A9576

== ENCOUNTER → 2022-05-23 13:27 | Outpatient (CLI) | payer MEDICARE, SELFPAY ==
[2022-05-23 14:08] LABS: Coronavirus 19, PCR Not Detected (NotDetected); Influenza A, PCR Not Detected (NotDetected); Influenza B, PCR Not Detected (NotDetected)
[2022-05-23 14:58] LABS: Basophils # 0.1 K/mm3 (0-0.2); Basophils % 0.9 % (0.1-2.0); Eosinophils # 0.2 K/mm3 (0.0-0.4); Eosinophils % 2.8 % (0.1-12.0); Hematocrit 43.8 % (37.0-47.0); Hemoglobin 13.2 g/dL (12.2-16.2); Lymphocytes # 2.6 K/mm3 (0.7-4.5); Lymphocytes % 42.2 % (10-50); Mean Corpuscular HGB Conc 30.2 g/dL (31.8-35.4); Mean Corpuscular Hemoglobin 29.3 pg (27.0-31.2); Mean Corpuscular Volume 96.9 fl (81-99); Mean Platelet Volume 7.3 fl (7.4-10.4); Monocytes # 0.4 K/mm3 (0.1-1.0); Monocytes % 6.4 % (1.7-9.3); Neutrophils # 2.9 K/mm3 (1.8-7.8); Neutrophils % 47.7 % (37.0-80.0); Platelet Count 247 K/mm3 (142-424); Red Blood Count 4.52 M/mm3 (4.20-5.40); Red Cell Distribution Width 12.8 % (11.5-17.5); White Blood Count 6.1 K/mm3 (4.8-10.8)
[2022-05-23 15:37] LABS: Strep Scrn Group A (Rapid) Negative (Negative)
== END ==
PROVIDERS: PCP Physician Assistant; Visit Provider Physician Assistant
DX: Z20.822 Contact with and (suspected) exposure to COVID-19 (principal); J02.9 Acute pharyngitis, unspecified
CPT/HCPCS: 36415; 85025; 87430; C9803; U0003; U0005

== ENCOUNTER → 2023-02-12 14:46 | Outpatient (CLI) | payer MEDICARE, SELFPAY ==
--- NOTE | 2023-02-12 15:02 | XR_ITS ---
FINAL REPORT CLINICAL HISTORY: RT KNEE PAIN FINDINGS: RIGHT KNEE SERIES Three views of the right knee were obtained. There is no acute fracture or dislocation. The there is mild degenerative change. There is no soft tissue abnormality. IMPRESSION: Mild degenerative change. Reviewed, Interpreted and Dictated by Santosh Wan III, MD Transcribed by Bubba Hampton Authenticated and [facility]
--- NOTE | 2023-02-12 15:02 | XR_ITS ---
FINAL REPORT CLINICAL HISTORY: LOW BACK PAIN, HX OF 3 FX'S IN SPINE 6 YRS AGO FINDINGS: LUMBAR SPINE Five views demonstrate no acute fracture. There is a moderate chronic L4 compression fracture with changes of kyphoplasty. There is mild degenerative change. There is mild leftward curvature, the alignment is otherwise stable. IMPRESSION: Mild degenerative change. Mild leftward curvature. Reviewed, Interpreted and Dictated by Santosh Wan III, MD Transcribed by Bubba Hampton Authenticated and [facility]
== END ==
PROVIDERS: PCP Physician Assistant; Visit Provider Physician Assistant
DX: M25.561 Pain in right knee (principal); M54.50 Low back pain, unspecified
CPT/HCPCS: 72110; 73562

== ENCOUNTER → 2023-02-21 08:36 | Outpatient (CLI) | payer MEDICARE, SELFPAY ==
--- NOTE | 2023-02-21 08:40 | MM_ITS ---
PROCEDURE INFORMATION: Exam: MG Bilateral Screening 3D Mammography Exam date and time: 02/21/2023 8:30 AM Age: 67 years old Clinical indication: Screening. Her mother and sister had breast cancer. TECHNIQUE: Imaging protocol: Bilateral Screening tomosynthesis and 2D mammography including computer-aided detection (CAD) when performed. COMPARISON: 1. MG MM DIG SCREENING MAMM BI W/CAD 01/23/2021 10:51 AM 2. MG SCBI MM Dig screening mamm BI w/CAD 11/09/2018 10:40 AM FINDINGS: MAMMOGRAPHY: Breast composition: The breasts are heterogeneously dense, which may obscure small masses. Mass: None. Architectural distortion: None. Calcifications: No suspicious calcifications. Asymmetric density: None. Skin thickening: None. Axillary adenopathy: None. IMPRESSION: No mammographic evidence of malignancy. Annual screening is recommended unless otherwise clinically indicated. Given the reported risk factors coupled with the patient's breast density, a breast cancer risk assessment may prove useful for further evaluation. ASSESSMENT: BI-RADS Category 1: Negative
--- NOTE | 2023-02-21 08:40 | XR_ITS ---
FINAL REPORT TECHNIQUE: Bone densitometry calculations of the lumbar spine and left hip were obtained. CLINICAL HISTORY: . post menopausal screening COMPARISON: No priors sent for comparison. FINDINGS: Using 1/3 radius the bone mineral density of the radius is 0.599 g/cm2, corresponding to T-score of -1.6 and a Z score of 0.2. This is within the range of osteopenia. Using the right hip, the bone mineral density of the femoral neck is 0.464 g/cm2, corresponding to a T-score of -3.5 and a Z-score of -1.9. This is within the range of osteoporosis. NOTE: T-score: Standard deviation compared with peak bone mass of young adult mean. *Following the recommendations of the International Society of Bone densitometry, classification of hip BMD is based on the lower of two T-scores; total hip or femoral neck. IMPRESSION: 1. Bone mineral density of the radius within the range of osteopenia. 2. Bone mineral density of the right femoral neck within the range of osteoporosis. FRAX was not reported because some of the T-scores are at or below -2.5. Reviewed, Interpreted and Dictated by Wandy Miranda MD Transcribed by Arina Garcia Authenticated and . [facility]
== END ==
PROVIDERS: PCP Physician Assistant; Visit Provider Physician Assistant
DX: Z12.31 Encounter for screening mammogram for malignant neoplasm of breast (principal); Z78.0 Asymptomatic menopausal state
CPT/HCPCS: 77063; 77067; 77080

== ENCOUNTER 2025-03-25 17:33 | Outpatient (CLI) | payer MEDICARE, SELFPAY ==
--- OUTSIDE RECORDS SUMMARY | 2024-12-17 07:45 | XMS_ITS ---
Author Organization [facility] Address [address] [facility] [address] [place] [id number] Care Team Providers Care Nurse Licensed Practical Name Role Phone Hugo Fernandez Primary Care Provider Allergies Allergen (clinical drug ingredient) Drug/Non Drug Allergy documented on EMR Reaction Allergy Type Onset Date Status meperidine Demerol knocks her out Drug Allergy A ctive sumatriptan SUMAtriptan chest pain and discomfort Drug Allergy Active codeine Codeine tightening in he r chest Drug Allergy Active REASON FOR VISIT med refill, shot in back for pain Encounters Encounter Location Date Provider Diagnosis [facility] [address] [facility] 36 [facility] [address] [place] [id number] 12/17/2024 Hugo Fernandez Plan Of Treatment No Information Progress Notes * Christine NOLASCODOB:1955 (70 yo F)Acc No.[id number]:12/17/2024 Progress Notes Patient: Christine GRANT Provider: Michael Fernandez M.D. :1955 A ge:69 Y S ex:Female Date:12/17/2024 Address:[address], [id number] Subjective: * Chief Complaints: * 1 . Med refill, shot in back for pain. * ROS: D ERMATOLOGY: no R porfirio. n o H liseth. G ASTROENTEROLOGY: no N ausea. n o V omiting. n o D iarrhea.? U ROLOGY: no D ifficulty urinating. n o B lood in urine. * Medical History: H ypertension, Mitral Valve Prolapse, Esophageal Reflux, Restless Leg Syndrome, Anxiety, Osteoporosis, Osteoarthritis, Allergic Rhinitis, Migraine Headache, CT head 2013, Trigeminal Neuralgia, CAD with 2 stents placed 05/20. * Surgical History: H eart Cath, [place], Dr. Preston 2011, LT 4 back surgery, Dr. Morales 03/2012, LT Hip Cup Repair, Dr. Morales 10/2010, LT Hip Repair, Dr. Deepak Morales 06/2009, RT Ear Drum Rupture Repair 1995, Hysterectomy 08/1992, Tubal Ligation 1979, Cholecystectomy 1984, T & A 1969, Two Coronary Stents Placed 05/2017. * Hospitalization/Major Diagno stic Procedure: c hild x2 , [facility] - Migraines , [facility]- Fall, Broken T6 11/05-02/2018. * Family History: F ather: , cancer, prostate, colon. M other: , congestive heart failure, enlarged heart, hypertension, osteoporosis. S iblings: one brother , heart attack (56 years), one sister had breast cancer, and strokes. 3 brother(s) , 4 sister(s) . 2 son(s) . . * Social History: C URRENT TOBACCO USE S moking Status: Patient does NOT smoke. C affeine: yes, frequency:diet pepsi, 4 cans a day. Marital Status: . Alcohol: No. * Allergies: D emerol: knocks her out - Allergy, Codeine: tightening in her chest - Allergy, SUMAtriptan: chest pain and discomfort - Side Effects. Objective: * Vitals: Assessment: Plan: * Treatment: * Images: Billing Information: * Visit Code: * Procedure Codes: * Electronic signature of Kelsey Fernandez MD on 03/28/2025 at 01:14 PM EDT Sign off status: Pending * Provider: Michael Fernandez M.D. Date: 0 12/17/2024 Generated for Ilir campbell/Libby/Sandi on: 0 03/28/2025 01:14 PM EDT
--- OUTSIDE RECORDS SUMMARY | 2024-12-23 10:45 | XMS_ITS ---
[facility] [address] [place] [id number] Care Team Providers Care Workforce Consultant Name Role Phone Jim Hugo Primary Care Provider Addis Hawk Unavailable [phone] Allergies Allergen (clinical drug ingredient) Drug/Non Drug Allergy documented on EMR Reaction Allergy Type Onset Date Status meperidine Demerol knocks her out Drug Allergy A ctive sumatriptan SUMAtriptan chest pain and discomfort Drug Allergy Active codeine Codeine tightening in he r chest Drug Allergy Active Reason For Referral Diagnosis 1 Mixed hyperlipidemia (E78.2) [facility] Referring Provider First Name Addis Referring Provider Last Name Carine Referring Provider Speciality Physician Suppression Crew Leader Referred Provider Cardiology, . Referred Provider Specialty Cardiovascul ar Disease General Notes [facility] 12/28/2024 09:00:05 AM > faxed to [facility] Kathya Davison Brynn 12/30/2024 09:13:58 AM > 01/03/2025 at 01:00pm Referral Priority Routine REASON FOR VISIT refills shot in back Medications Medication SIG (Take, Route, Frequency, Duration) Notes Start Date End Date Status Nystatin 915191 UNIT/GM 1 application Externally Three times a day 02/12/2023 Not-Taking Gabapentin 300 MG 3 capsule Orally Three times a day Not-Taking Loratadine 10 MG 1 tab(s) orally once a day; Duration: 90 days Not-Taking Nitroglycerin 0.4 MG 1 tablet under the tongue and allow to dissolve as needed. Take every 5 minutes up to 3 times if chest pain persists Sublingual Three times a day, prn Active Clopidogrel Bisulfate 75 MG 1 tablet Orally Once a day; Duration: 90 days Active traZODone HCl 100 MG 1 tablet at bedtime Orally Once a day; Duration: 30 days Active Flonase Allergy Relief 50 MCG/ACT 1 spray(s) in each nostril once a day; Duration: 30 days Not-Taking Atenolol 100 MG 1 tablet Orally Once a day; Duration: 30 days Active Vitamin D3 125 MCG (5000 UT) 1 tablet Orally Once a day 01/16/2024 Not-Taking DULoxetine HCl 60 MG TAKE 1 CAPSULE EVERY DAY; Duration: 30 Active Rosuvastatin Calcium 20 MG 1 tablet at bedtime Orally Once a day; Duration: 30 days Active rOPINIRole HCl 1 MG TAKE 1 AND 1/2 TABLETS EVERY DAY AT BEDTIME Orally; Duration: 30 days Active Omeprazole 40 MG TAKE 1 CAPSULE EVERY DAY Orally Once a day; Duration: 30 days Active oxyBUTYnin Chloride 5 MG TAKE 1 TABLET TWICE DAILY; Duration: 30 days Active Triamterene-HCTZ 37.5-25 MG TAKE 1 TABLET EVERY DAY; Duration: 30 days Active Estradiol 0.5 MG 2 tablets Orally Once a day; Duration: 30 days PT NEEDS APPT Active Gabapentin 800 MG 1 tablet Orally Three times a day; Duration: 90 days 06/03/2024 Active Aspirin 81 MG 1 tablet Orally Once a day; Duration: 30 day(s) Active Vital Signs Weight 235.4 lbs 12/23/2024 Blood pressure systolic 102 mm Hg 12/24/19 25 Blood pressure diastolic 70 mm Hg 025 Heart Rate 71 /min 12/23/2024 Height 67.50 in 12/23/2024 BMI 36.32 kg/m2 12/23/2024 Encounters Encounter Location Date Provider Diagnosis [facility] [address] [id number] 12/23/2024 Addis Hawk Mixed hyperlipidemia E78.2 ; Vitamin D deficiency E55.9 ; Atherosclerotic heart disease of [place] coronary artery without angina pectoris I25.10 ; Essential hypertension I10 ; Restless legs G25.81 ; Overactive bladder N32.81 ; MVP (mitral valve prolapse) I34.1 ; GERD without esophagitis K21.9 ; Trigeminal neuralgia G50.0 ; Chronic migraine G43.709 ; Anxiety disorder, unspecified type F41.9 ; Polyarthralgia M25.50 ; Depression with anxiety F41.8 and BMI 36.0-36.9,adult Z68.36 Assessments Encounter Date Diagnosis (ICD Code) Assessment Notes Treatment Notes Treatment Clinical Notes Section Notes 12/23/2024 Mixed hyperlipidemia (ICD-10 - E78.2) 12/23/2024 Vitamin D deficiency (ICD-10 - E55.9) 12/23/2024 Atherosclerotic heart disease of [place] coronary artery without angina pectoris (ICD-10 - I25.10) 12/23/2024 Essential hypertension (ICD-10 - I10) 12/23/2024 Restless legs (ICD-10 - G25.81) 12/23/2024 Overactive bladder (ICD-10 - N32.81) 12/23/2024 MVP (mitral valve prolapse) (ICD-10 - I34.1) 12/23/2024 GERD without esophagitis (ICD-10 - K21.9) 12/23/2024 Trigeminal neuralgia (ICD-10 - G50.0) 12/23/2024 Chronic migraine (ICD-10 - G43.709) 12/23/2024 Anxiety disorder, unspecified type (ICD-10 - F41.9) 12/23/2024 Polyarthralgia (ICD-10 - M25.50) Will give a steroid shot today for back and other joint pain. 12/23/2024 Depression with anxiety (ICD-10 - F41.8) 12/23/2024 BMI 36.0-36.9,adult (ICD-10 - Z68.36) Plan Of Treatment Medication Medication Name Sig Start Date Stop Date Notes Nitroglycerin 0.4 MG 1 tablet under the tongue and allow to dissolve as needed. Take every 5 minutes up to 3 times if chest pain persists Sublingual Three times a day, prn Clopidogrel Bisulfate 75 MG 1 tablet Ora lly Once a day; Duration: 90 days Treatment Notes Assessment Notes Polyarthralgia Will give a steroid shot today for back and other joint pain. Referrals Referral Date Details 12/27/2024 12/27/2024, . Cardio logy Next Appt Details Follow Up: with cardiology, Reason: Medications Administered Medication Instructions Date of Administration Dosage Notes Depo- Medrol 40 mg/ml 12/23/2024 1 mL Progress Notes * Diomedes NOLASOC:1955 (70 yo F)Acc No.[id number]:12/23/2024 Progress Notes Patient: Christine GRANT Provider: ONIEL Hutson :1955 A ge:69 Y S ex:Female Date:12/23/2024 Address:[address], [place], [id number] Pcp:Hugo Fernandez Subjective: * Chief Complaints: * 1 . Refills shot in back. * HPI: Álvaro silveira back: 69 year old female presents with c/o Low Back Pain T he pt is here today with c/o low back pain. Pt rates 6/10 on the pain scale. Pt states she is needing a refill for Gabapentin sent to [facility] mail order. Pt states she is needing a refill for Nitroglycerin as well. Pt states she has had some chest pain off and on. Pt states she has had to take nitro two times this week. * ROS: D ERMATOLOGY: no R porfirio. [...] 05/20. * Surgical History: H eart Cath, Many, Dr. Preston 2011, LT 4 back surgery, Dr. Morales 03/2012, LT Hip Cup Repair, Dr. Morales 10/2010, LT Hip Repair, Dr. Deepak Morales 06/2009, RT Ear Drum Rupture Repair 1995, Hysterectomy 08/1992, Tubal Ligation 1979, Cholecystectomy 1984, T & A 1969, Two Coronary Stents Placed 05/2017. * Hospitalization/Major Diagno stic Procedure: c hild x2 , [facility] - [facility] , [facility]- Fall, [...] day. Marital Status: . Alcohol: No. * Medications: T aking Gabapentin 800 MG Tablet 1 tablet Orally Three times a day , Taking Aspirin 81 MG Tablet Delayed Release 1 tablet Orally Once a day , Taking Clopidogrel Bisulfate 75 MG Tablet 1 tablet Orally Once a day , Taking Estradiol 0.5 MG Tablet 2 tablets Orally Once a day , Notes to Pharmacist: PT NEEDS APPT, Taking Rosuvastatin Calcium 20 MG Tablet 1 tablet at bedtime Orally Once a day , Taking Omeprazole 40 MG Capsule Delayed Release TAKE 1 CAPSULE EVERY DAY Orally Once a day , Taking rOPINIRole HCl 1 MG Tablet TAKE 1 AND 1/2 TABLETS EVERY DAY AT BEDTIME Orally , Taking Triamterene-HCTZ 37.5-25 MG Tablet TAKE 1 TABLET EVERY DAY , Taking oxyBUTYnin Chloride 5 MG Tablet TAKE 1 TABLET TWICE DAILY , Taking traZODone HCl 100 MG Tablet 1 tablet at bedtime Orally Once a day , Taking Atenolol 100 MG Tablet 1 tablet Orally Once a day , Taking DULoxetine HCl 60 MG Capsule Delayed Release Particles TAKE 1 CAPSULE EVERY DAY , Not-Taking Flonase Allergy Relief 50 MCG/ACT Suspension 1 spray(s) in each nostril once a day , Not-Taking Vitamin D3 125 MCG (5000 UT) Tablet 1 tablet Orally Once a day , Not-Taking Gabapentin 300 MG Capsule 3 capsule Orally Three times a day , Not-Taking Nystatin 146390 UNIT/GM Cream 1 application Externally Three times a day , Not-Taking Loratadine 10 MG Tablet 1 tab(s) orally once a day , Medication List reviewed and reconciled with the patient * Allergies: D emerol: knocks her out - Allergy, Codeine: tightening in her chest - Allergy, SUMAtriptan: chest pain and discomfort - Side Effects. Objective: * Vitals: W t: 235.4, Temp: 97.9, BP: 102/70, HR: 71, Nurse: BORIS, Ht: 67.50, BMI:36.32. * Examination: G eneral Examination: General Appearance: N AD. H EENT: u nremarkable.?Oral cavity: n o lesions, mucosa moist and WNL, no erythema. N nannette: s upple, no lymphadenopathy. C hest: n ormal shape and expansion. H eart: R SR. L ungs: c lear to auscultation. A bdomen: bowel sounds present, soft and nontender, no guarding or rigidity. N eurologic Exam: I ntact, gait normal. S kin: n ormal, no rash. P eripheral pulses: n ormal (2+) bilaterally. B ack: ttp along the lower lumbar spine. E xtremities: n o leg edema. Assessment: * Assessment: 1. M ixed hyperlipidemia - E78.2 (Primary) 2 . V itamin D deficiency - E55.9 3 . A therosclerotic heart disease of [place] coronary artery without angina pectoris - I25.10 4 . E ssential hypertension - I10 5 . R estless legs - G25.81 6 . O veractive bladder - N32.81 7 . M CLAY MODELER (mitral valve prolapse) - I34.1 8 . G ERD without esophagitis - K21.9 9 . T rigeminal neuralgia - G50.0 1 0. C hronic migraine - G43.709 11. A nxiety disorder, unspecified type - F41.9 1 2. P olyarthralgia - M25.50 1 3. D epression with anxiety - F41.8 1 4. B AR 36.0-36.9,adult - Z68.36 Plan: * Treatment: 2. A therosclerotic heart disease of [place] coronary artery without angina pectoris Refill Clopidogrel Bisulfate Tablet, 75 MG, 1 tablet, Orally, Once a day, 90 days, 90 Tablet, Refills 3; S tart Nitroglycerin Tablet Sublingual, 0.4 MG, 1 tablet under the tongue and allow to dissolve as needed. Take every 5 minutes up to 3 times if chest pain persists, Sublingual, Three times a day, prn, 30, Refills 5. 3. P olyarthralgia Notes: Will give a steroid shot today for back and other joint pain. * Therapeutic Injections: Depo- Medrol 40 mg/ml : 1 mL (Route: Intramuscular) given by Ellyn Carvalho on left gluteus (Polyarthralgia) * Procedure Codes: G 2211 Complex e/m visit add on, J1010 Inj, methylpred acetate 1 mg, 30377 ADMINISTRATION OF INJECTION, 3074F SYST BP LT 130 MM HG, 3078F DIAST BP < 80 MM HG * Follow Up: [facility] cardiology * Images: Billing Information: * Visit Code: 41277 Office Visit, Est Pt., Level 4. Modifiers: 25 * Procedure Codes: G2211 Complex e/m visit add on. J1010 Inj, methylpred acetate 1 mg. 63758 ADMINISTRATION OF INJECTION. 3074F SYST BP LT 130 MM HG. 3078F DIAST BP < 80 MM HG. * Electronic signature of ONIEL Hernandez on 03/28/2025 at 01:14 PM EDT Sign off status: Pending * Provider: ONIEL Hutson Date: 0 12/23/2024 Generated for Ilir campbell/Libby/eTransmitting on: 0 03/28/2025 01:14 PM EDT History and Physical Notes * HPI (History of Present Illness) Category Sub-Category Detail Notes Category Not es Lower back Low Back Pain The pt is here t stan with c/o low back pain. Pt rates 6/10 on the pain scale. Pt states she is needing a refill for Gabapentin sent to [facility] mail order. Pt states she is needing a refill for Nitroglycerin as well. Pt states she has had some chest pain off and on. Pt states she has had to take nitro two times this week Examination Category Sub-Category Detail Notes Category Not es General Examination HEENT: unremarkable Heart: RSR Lungs: clear to auscultatio n Abdomen: bowel sounds present , soft and nontender, no guarding or rigidity Extremities: no leg edema General Appearance: NAD Skin: normal, no rash Neurologic Exam: Intact, gait normal Neck: supple, no lymphaden opathy Oral cavity: no lesions, mucosa m oist and WNL, no erythema Peripheral pulses: normal (2+) bilatera lly Back: ttp along the lower lumbar spine Chest: normal shape and exp ansion Consultation Request Notes Referral Date Referring Provider Referred Provider Not es 12/27/2024 Addis Hawk Cardiology, .
--- OUTSIDE RECORDS SUMMARY | 2025-02-28 10:00 | XMS_ITS ---
Author Organization [facility] Address [address] [place] [id number] Care Team Providers Care Dam Attendant Name Role Phone Hugo Fernandez Primary Care Provider REASON FOR VISIT heads hurting, poss sinus infection Encounters Encounter Location Date Provider Diagnosis [facility] [address] [place] [phone] 02/28/2025 Hugo Fernandez Plan Of Treatment No Information Progress Notes * Christine NOLASCODOB:1955 (70 yo F)Acc No.[id number]:02/28/2025 Progress Notes Patient: Rod GRANTva Provider: Michael Fernandez M.D. :1955 A ge:69 Y S ex:Female Date:02/28/2025 Address:[address], [id number] Subjective: * Chief Complaints: * 1 . Heads hurting, poss sinus infection. * Medical History: Objective: * Vitals: Assessment: Plan: * Treatment: * Images: Billing Information: * Visit Code: * Procedure Codes: * Electronic signature of Kelsey Fernandez MD on 03/28/2025 at 01:14 PM EDT Sign off status: Pending * Provider: Michael Fernandez M.D. Date: 02/28/2025 Generated for Ilir campbell/Libby/eTransmitting on: 03/28/2025 01:14 PM EDT
--- OUTSIDE RECORDS SUMMARY | 2025-03-28 13:14 | XMS_ITS | Patient Health Record ---
Author Organization [facility] [address] [facility] [address] [facility] [address] [place] [id number] Care Team Providers Care Breakfast Host Name Role Phone Hugo Fernandez Primary Care Provider [phone] Buck Ordaz Unavailable [phone] Addis Hawk Unavailable [phone] Allergies Allergen (clinical drug ingredient) Drug/Non Drug Allergy documented on EMR Reaction Allergy Type Onset Date Status meperidine Demerol knocks her out Drug Allergy A ctive sumatriptan SUMAtriptan chest pain and discomfort Drug Allergy Active codeine Codeine tightening in he r chest Drug Allergy Active Results Component Value Reference Range Notes CBC Venipuncture (in house) Reviewed date:06/08/2024 11:41:56 AM Interpretation: Performing Lab: Notes/Report: wbc 7.4 3.5 - 10 lymph 26.4% 15 - 50 mid 5.9% 2 - 15 gran 67.7% 35 - 80 rbc 4.53 3.5 - 5.5 hgb 13.9 11.5 - 16.5 hct 42.0 35 - 55 mcv 92.6 75 - 100 mch 30.6 25 - 35 mchc 33.0 31 - 38 platlet 282 100 - 400 P-Vitamin D, 1, 25 Dihydroxy Reviewed date:06/10/2024 08:40:17 AM Interpretation:49.8 Performing Lab: Notes/Report: Test performed by [facility] [address] [place] [address] , [address], [place] [address] Sachin Jin MD, Sales Marketing Director CLIA: [id number] Vitamin D, 1, 25 Dihydroxy 49.8 19.9-79.3 pg/m L P-Lipid Panel Reviewed date:06/10/2024 08:40:17 AM Interpretation:chol 201, trig 183, non-hdl 146 Performing Lab: Notes/Report: Test performed by [facility], [address], [place] [address] Sachin Jin MD, Sales Marketing Director CLIA: [id number] Cholesterol 201 <200 mg/dL Triglycerides 183 <150 mg/dL HDL Cholesterol 55 >39 mg/dL Cholesterol / HDL Ratio 3.65 0.00-4.44 Ratio Non-HDL Cholesterol 146 <130 mg/dL LDL Cholesterol (Calculation) 109 <130 mg/dL LDL Cholesterol Levels* Less than 100 mg/dL Optimal 100 to 129 mg/dL Near Optimal/ Above Optimal 130 to 159 mg/dL Borderline High 160 to 189 mg/dL High 190 mg/dL and above Very High * Categories as recommended by the 2004 ATPIII guidelines LDL/HDL Ratio 2.0 <3.3 Ratio LDL Cholesterol Patient History Test Date: 06/03/2024 LDL Results: 109 Units: mg/dL % Change: - Glycohemoglobin A1c (in hous e) Reviewed date:06/10/2024 08:40:17 AM Interpretation:5.8 Performing Lab: Notes/Report: 5.8 glycohemoglobin 5.8% 5 - 6.5 % P-Vitamin B12 Reviewed date:06/10/2024 08:40:17 AM Interpretation:Normal Performing Lab: Notes/Report: Test performed by [email or web address] [address] [place] [address] , [address], [place] [address] Sachin Jin MD, Sales Marketing Director CLIA: [id number] Vitamin B12 943 890-2628 pg/mL P-TSH Reviewed date:06/10/2024 08:40:17 AM Interpretation:Normal Performing Lab: Notes/Report: Test performed by [email or web address] [address] [place] [address] , [address], [place] [address] Sachin Jin MD, Sales Marketing Director CLIA: [id number] TSH 1.79 0.43-5.25 mU/L Reason For Referral Reason patient needs referr al to Dr. Massey Diagnosis 1 Paresthesia of both feet (R20.2) [facility] Referring Provider First Name Hugo Referring Provider Last Name Jim Referring Provider Speciality Family Pra ctice Referred Provider Rossi Massey Referred Provider Specialty Neurology General Notes Shira Rasheed 024 1:20:14 PM > faxed to Dr. Massey's office Referral Priority Routine Diagnosis 1 Mixed hyperlipidemia (E78.2) [facility] Referring Provider First Name Addis Referring Provider Last Name Carine Referring Provider Speciality Physician Blood Bank Worker Referred Provider Cardiology, . Referred Provider Specialty Cardiovascul ar Disease General Notes [facility] 12/28/2024 09:00:05 AM > fax[facility] to [facility] CardiologyKathya Brynn 12/30/2024 09:13:58 AM > 01/03/2025 at 01:00pm Referral Priority Routine Medications Medication SIG (Take, Route, Frequency, Duration) Notes Start Date End Date Status Nystatin 335915 UNIT/GM 1 application Externally Three times a day 02/12/2023 Not-Taking Gabapentin 300 MG 3 capsule Orally Thr ee times a day Not-Taking Loratadine 10 MG 1 tab(s) orally once a day; Duration: 90 days Not-Takin g Nitroglycerin 0.4 MG 1 tablet under the tongue and allow to dissolve as needed. Take every 5 minutes up to 3 times if chest pain persists Sublingual Three times a day, prn Active Fluticasone Propionate 50 MCG/ACT USE 1 SPRAY IN EACH NOSTRIL ONE TIME DAILY (SUBSTITUTED FOR FLONASE); Duration: 90 Active Clopidogrel Bisulfate 75 MG 1 tablet Orally Once a day; Duration: 90 days Active Gabapentin 800 MG 1 tablet Orally Thre e times a day; Duration: 90 days 01/03/2025 Active DULoxetine HCl 60 MG 1 capsule Orally On ce a day; Duration: 30 days Active Omeprazole 40 MG 1 capsule 1/2 to 1 h our before morning meal Orally Once a day; Duration: 30 days Active oxyBUTYnin Chloride 5 MG 1 tablet Orally twice a day; Duration: 30 days Active Estradiol 0.5 MG 2 tablets orally onc e a day; Duration: 30 days Active Rosuvastatin Calcium 20 MG 1 tablet Orally Once a day; Duration: 30 days Active traZODone HCl 100 MG 1 tablet at bedtime Orally Once a day; Duration: 30 days Active Triamterene-HCTZ 37.5-25 MG 1 tablet in the morning Orally Once a day; Duration: 30 days Active rOPINIRole HCl 1 MG 1 and a half tablets orally at bedtime; Duration: 30 days Active Atenolol 100 MG 1 tablet Orally Once a day; Duration: 30 days Active Vitamin D3 125 MCG (5000 UT) 1 tablet Orally Once a day 01/16/2024 Not-Taking Aspirin 81 MG 1 tablet Orally Once a day; Duration: 30 day(s) Active Immunizations Vaccine Route Administration Date Status Comme nts xFluzone High Dose-private (65yr&older) Unknown 05/31/2024 Administered Tetanus Tdap-Adacel (over 7yrs) IM Intramuscular 05/22/2017 Administered Shingrix Unknown 06/07/2020 Administered Shingrix Unknown 09/25/2020 Administered Prevnar (PCV20) IM Intramuscular 06/03/2024 Administered PNEUMOVAX 23 VACCINE IM Intramuscular 09/12/2016 Administe red Fluzone Quad-Medicare (6months&older) IM Intramuscular 05/22/2017 Administered Fluzone Quad-Medicare (6months&older) IM Intramuscular 04/07/2019 Administered Fluzone Quad (6months&older) Unknown 05/30/2020 Administered Fluzone PF Quad (6-35 months) Unknown 08/16/2021 Administered Fluzone High Dose (65yr and older) Unknown 04/12/2022 Administered Fluzone High Dose (65yr and older) Unknown 05/02/2023 Administered Flublok IM Intramuscular 09/25/2018 Administered COVID 19 Mark Unknown 10/11/2020 Administered COVID 19 Mark Unknown 06/16/2021 Administered Problems Problem Type SNOMED Code ICD Code Onset Dates Problem Status W/U Status Risk Notes Problem Overactive bladder (872138630) Overactive bladder (N32.81) Active confirmed Problem Vitamin D deficiency (45368190) Vitamin D deficiency (E55.9) Active confirmed Problem Essential hypertension (52717368) Essential hypertension (I10) Active confirmed Problem Anxiety (31817416) Anxiety (F41.9) Active confi rmed Problem Sciatic nerve lesion (384440736) Piriformis syndrome of left side (G57.02) Active confirmed Problem Mixed anxiety and depressive disorder (252709137) Depression with anxiety (F41.8) Active confirmed Problem Peripheral neuropathy (435608385) Peripheral neuropathy (G62.9) Active confirmed Problem Restless legs (39274984) Restless legs (G25.81) Active confirmed Problem Mixed hyperlipidemia (930003523) Mixed hyperlipidemia (E78.2) Active confirmed Problem Trigeminal neuralgia (46174092) Trigeminal neuralgia (G50.0) Active confirmed Problem Atherosclerotic heart disease of [place] coronary artery without angina pectoris (600559082039051) Atherosclerotic heart disease of [place] coronary artery without angina pectoris (I25.10) Active confirmed Problem Postmenopausal state (01196129) Post-menopausal (Z78.0) Active confirmed Problem Chronic migraine (554421957) Chronic migraine (G43.709) Active confirmed Problem Gastroesophageal reflux disease (909356503) GERD without esophagitis (K21.9) Active confirmed Problem Obese class II (519751710982828) BMI 36.0-36.9,adult (Z68.36) Active confirmed Problem Osteoporosis (43058627) Osteoporosis (M81.0) Active confirmed Problem Insomnia disorder related to another mental disorder (76329038) Psychophysiological insomnia (F51.04) Active confirmed Problem Anxiety state (455223964) Anxiety disorder, unspecified type (F41.9) Active confirmed Problem Syncope and collapse (127674986) Syncope, unspecified syncope type (R55) Active confirmed Problem Insomnia (119339209) Insomnia, unspecified type (G47.00) Active confirmed Problem Body mass index 30.00 to 34.99 (897346573588121) BMI 31.0-31.9,adult (Z68.31) Active confirmed Problem Mitral valve disorder (79706363) MVP (mitral valve prolapse) (I34.1) Active confirmed Problem Skin sensation disturbance (94106595) Paresthesia of both feet (R20.2) Active confirmed Problem Refractory migraine with aura (902138747) Intractable migraine with aura without status migrainosus (G43.119) Active confirmed Problem Tinnitus (14803326) Tinnitus, right (H93.11) Active confirmed Problem Depression (251697926) Other depression (F32.89) Active confirmed Problem Lumbar spondylosis (198305832) Lumbar spondylosis (M47.816) Active confirmed Problem Status post inse rtion of drug-eluting stent into left anterior descending artery for coronary artery disease (Z95.5) Active confirmed Problem Seasonal allergic rhinitis (871809388) Seasonal allergic rhinitis, unspecified trigger (J30.2) Active confirmed Vital Signs Heart Rate 71 /min 12/23/2024 Blood pressure diastolic 70 mm Hg 12/23/2024 Height 67.50 in 12/23/2024 Blood pressure systolic 102 mm Hg 12/23/2024 Weight 235.4 lbs 12/23/2024 BMI 36.32 kg/m2 12/23/2024 Encounters Encounter Location Date Provider Diagnosis [facility] [address] [id number] 06/03/2024 Buck Ordaz Adult general medica l examination Z00.00 ; Peripheral neuropathy G62.9 ; Mixed hyperlipidemia E78.2 ; Vitamin D deficiency E55.9 ; Screening for breast cancer Z12.31 ; Atherosclerotic heart disease of [place] coronary artery without angina pectoris I25.10 ; Essential hypertension I10 ; Restless legs G25.81 ; Overactive bladder N32.81 ; MVP (mitral valve prolapse) I34.1 ; GERD without esophagitis K21.9 ; Trigeminal neuralgia G50.0 ; Chronic migraine G43.709 ; Osteopenia M85.80 ; Anxiety disorder, unspecified type F41.9 ; Lumbar spondylosis M47.816 and BMI 36.0-36.9,adult Z68.36 [facility] [address] [facility] [address] [place], [place] [id number] 12/23/2024 Addis Hawk Mixed hyperlipidemia E78.2 ; Vitamin D deficiency E55.9 ; Atherosclerotic heart disease of [place] coronary artery without angina pectoris I25.10 ; Essential hypertension I10 ; Restless legs G25.81 ; Overactive bladder N32.81 ; MVP (mitral valve prolapse) I34.1 ; GERD without esophagitis K21.9 ; Trigeminal neuralgia G50.0 ; Chronic migraine G43.709 ; Anxiety disorder, unspecified type F41.9 ; Polyarthralgia M25.50 ; Depression with anxiety F41.8 and BMI 36.0-36.9,adult Z68.36 [facility] [address] [facility] [address] [place], [place] [id number] 06/10/2024 Hugo Buford Paresthesia of both feet R20.2 [facility] [address] [facility] [address] [facility] [address] [place], [place] [id number] 06/14/2024 Hugo Buford [facility] [address] [facility] [address] [facility] [address] [place], [place] [id number] 09/06/2024 Hugo Buford [facility] [address] [facility] [address] [place], [place] [id number] 01/03/2025 Hugo Buford Assessments Encounter Date Diagnosis (ICD Code) Assessment Notes Treatment Notes Treatment Clinical Notes Section Notes 06/03/2024 Peripheral neuropathy (ICD-10 - G62.9) 06/03/2024 Adult general medical examination (ICD-10 - Z00.00) Patient instructed to return to office Annually for Annual Wellness Visits to include annual screenings of Pain assessment, Functional Ability assessment, Cognitive Ability assessment, Fall Risk assessment, Depression screening and Bladder control screening. 12/23/2024 Vitamin D deficiency (ICD-10 - E55.9) 06/10/2024 Paresthesia of both feet (ICD-10 - R20.2) 12/23/2024 Mixed hyperlipidemia (ICD-10 - E78.2) 12/23/2024 Atherosclerotic heart disease of [place] coronary artery without angina pectoris (ICD-10 - I25.10) 06/03/2024 Mixed hyperlipidemia (ICD-10 - E78.2) 06/03/2024 Vitamin D deficiency (ICD-10 - E55.9) 12/23/2024 Essential hypertension (ICD-10 - I10) 06/03/2024 Screening for breast cancer (ICD-10 - Z12.31) 12/23/2024 Restless legs (ICD-10 - G25.81) 06/03/2024 Atherosclerotic heart disease of [place] coronary artery without angina pectoris (ICD-10 - I25.10) 12/23/2024 Overactive bladder (ICD-10 - N32.81) 12/23/2024 MVP (mitral valve prolapse) (ICD-10 - I34.1) 06/03/2024 Essential hypertension (ICD-10 - I10) 06/03/2024 Restless legs (ICD-10 - G25.81) 12/23/2024 GERD without esophagitis (ICD-10 - K21.9) 12/23/2024 Trigeminal neuralgia (ICD-10 - G50.0) 06/03/2024 Overactive bladder (ICD-10 - N32.81) 12/23/2024 Chronic migraine (ICD-10 - G43.709) 06/03/2024 MVP (mitral valve prolapse) (ICD-10 - I34.1) 12/23/2024 Anxiety disorder, unspecified type (ICD-10 - F41.9) 06/03/2024 GERD without esophagitis (ICD-10 - K21.9) 06/03/2024 Trigeminal neuralgia (ICD-10 - G50.0) 12/23/2024 Polyarthralgia (ICD-10 - M25.50) Will give a steroid shot today for back and other joint pain. 12/23/2024 Depression with anxiety (ICD-10 - F41.8) 06/03/2024 Chronic migraine (ICD-10 - G43.709) 06/03/2024 Osteopenia (ICD-10 - M85.80) 12/23/2024 BMI 36.0-36.9,adult (ICD-10 - Z68.36) 06/03/2024 Anxiety disorder, unspecified type (ICD-10 - F41.9) 06/03/2024 Lumbar spondylosis (ICD-10 - M47.816) 06/03/2024 BMI 36.0-36.9,adult (ICD-10 - Z68.36) Plan Of Treatment Pending Test Test Name Order Date Nerve Conduction Study 06/14/2024 Mammogram 06/03/2024 Cologuard 04/22/2023 Insurance Providers Payer Name Payer Address Payer Phone Subscriber Number Group Number Insured Name Patient Relationship to Insured Coverage Start Date Coverage End Date [employer] (MEDICAR E) [address] [address] [place] [address] [id number] Christine Nolasco Self - patient is the insured Medications Administered Medication Instructions Date of Administration Dosage Notes Depo- Medrol 40 mg/ml 10/06/2020 1.5 mL Depo- Medrol 40 mg/ml 02/12/2023 1 mL Depo- Medrol 40 mg/ml 06/03/2024 1.5 mL Depo- Medrol 40 mg/ml 12/23/2024 1 mL Medical (General) History Medical History History ICD Code Hypertension Mitral Valve Prolapse Esophageal Reflux Restless Leg Syndrome Anxiety Osteoporosis Osteoarthritis Allergic Rhinitis Migraine Headache, CT head 2013 Trigeminal Neuralgia CAD with 2 stents placed 05/20 Surgical History Surgery Date(Month/Year) Heart Cath, Dr. Mohan Knowles 2011 LT 4 back surgery, Dr. Morales 03/2012 LT Hip Cup Repair, Dr. Morales 10/2010 LT Hip Repair, Dr. Deepak Morales 06/2009 RT Ear Drum Rupture Repair 1995 Hysterectomy 08/1992 Tubal Ligation 1979 Cholecystectomy 1984 T & A 1970 Two Coronary Stents Placed 05/2017 Hospitalization History Reason Date(Month/Year) [facility]- Fall, Broken T6 11/05-02/2018 child x2 [facility] ER - Migraines
--- OUTSIDE RECORDS SUMMARY | 2025-03-28 13:14 | XMS_ITS | Clinical Summary ---
Author Organization [facility] Address [address] [place] [address] Care Team Providers Care Forensics Analyst Name Role Phone Mj Tiwari MD Primary Care Provider [phone] Allergies Active Allergy Reactions Criticality Noted Date Comments Codeine 07/01/2017 Propoxyphene Other (See Comments) 01/27/2018 CHest tightness Meperidine 07/01/2017 Medications aspirin 81 MG EC tablet Take 81 mg by mouth Daily. 05/13/2017 Active atenolol (TENORMIN) 100 MG tablet Take 100 mg by mouth Daily. 05/13/2017 Active estradiol (ESTRACE) 1 MG tablet Take 1 mg by mouth Daily. 05/09/2017 Active gabapentin (NEURONTIN) 300 MG capsule Take 300 mg by mouth 2 (Two) Times a Day As Needed. 06/16/2017 Active omeprazole (priLOSEC) 40 MG capsule Take 40 mg by mouth Daily. 04/15/2017 Active oxybutynin (DITROPAN) 5 MG tablet Take 5 mg by mouth Daily. 2 tabs daily 04/01/2017 Active rOPINIRole (REQUIP) 1 MG tablet Take 1.5 mg by mouth Every Night. 05/09/2017 Active traZODone (DESYREL) 150 MG tablet Take 150 mg by mouth Every Night. 04/15/2017 Active Cholecalciferol (VITAMIN D3) 5000 units capsule capsule Take 5,000 Units by mouth Daily. Active ibuprofen (ADVIL,MOTRIN) 200 MG tablet Take 200 mg by mouth Every 6 (Six) Hours As Needed for Mild Pain . Active nitroglycerin (NITROSTAT) 0.[address] 1 tablet under the tongue Every 5 (Five) Minutes As Needed for Chest Pain. Take no more than 3 doses in 15 minutes. 30 tablet 5 09/29/2018 Active rosuvastatin (CRESTOR) 20 MG tablet Take 1 tablet by mouth Daily. Active methocarbamol (ROBAXIN) 500 MG tablet Take 500 mg by mouth As Needed. 10/09/2020 Active hydroCHLOROthiaz ivet (HYDRODIURIL) 25 MG tablet Take 1 tablet by mouth Daily. Active clopidogrel (PLAVIX) 75 MG tabletIndication s:Coronary artery disease involving [place] coronary artery of [place] heart without angina pectoris TAKE 1 TABLET EVERY DAY 90 tablet 08/20/2021 Active isosorbide mononitrate (IMDUR) 30 MG 24 hr tablet TAKE 1 TABLET EVERY MORNING 90 tablet 08/20/2021 Active Active Problems No known active problems Family History Medical History Relation Name Comments Heart attack Brother Cancer Father Stroke Mother Ulcerative colitis Mother Arrhythmia Sister Relation Name Status Comments Brother Father Mother Sister Alive Social History Tobacco Use Types Packs/Day Years Used Date Smoking Tobacco: Former Cigarettes Q uit: 1991 Smokeless Tobacco: Never Alcohol Use Standard Drinks/Week Comments No 0 (1 standard drink = 0.6 oz pur e alcohol) Abuse Screen Answer Date Recorded Unsafe at Home or Work/School Not on file Feels Threatened by Someone? Not on file 06/2023 Does Anyone Keep You from Co ntacting Others or Doint Things Outside the Home? Not on file 05/14/2023 Physical Sign of Abuse Present Not on file 1 Housing Stability Answer Date Recorded Current Living Arrangements Not on file 05/04 Potentially Unsafe Housing Conditions Not on ivon e 05/14/2023 Family and Community Support Answer Mynor e Recorded Help with Day-to-Day Activities Not on file 05/14/2023 Lonely or Isolated Not on file 05/14/2023 Employment Answer Date Recorded Do you want help finding or keeping work or a violette b? Not on file 05/14/2023 Disabilities Answer Date Recorded Concentrating, Remembering, or Making Decisions Difficulty Not on file 05/14/2023 Doing Errands Independently Difficulty Not on fi le 05/14/2023 Education Answer Date Recorded Help with school or training? Not on file Preferred Language Not on file 05/14/2023 Comments Unknown Sex and Gender Information Value Date Recorded Sex Assigned at Not on file Legal Sex Female 10:43 AM EST Gender Identity Not on file Sexual Orientation Not on file Last Filed Vital Signs Vital Sign Reading Time Taken Comments Blood Pressure 148/90 10/12/2020 3:14 PM EST Pulse 72 10/12/2020 3:14 PM EST Temperature - - Respiratory Rate - - Oxygen Saturation 95% 10/12/2020 3:14 PM EST Inhaled Oxygen Concentration - - Weight 92.1 kg (203 lb) 10/12/2020 3:14 PM EST Height 170.2 cm (5' 7 ) 10/12/2020 3:14 PM EST Body Mass Index 31.79 10/12/2020 3:14 PM EST Plan of Treatment Health Maintenance Due Date Last Done Comments DXA SCAN 1957 MAMMOGRAM 1997 COLON CANCER SCREENING 5 YEA R SIGMOIDOSCOPY [address] COLONOGRAPHY 2002 FECAL OCCULT BLOOD TEST 2002 FIT Testing (1 year) 2002 Pneumococcal Vaccine 50+ (1 of 1 - PCV) 2007 ANNUAL PHYSICAL 07/01/2017 HEPATITIS C SCREENING 07/01/2017 COLOGUARD 03/07/2023 03/07/2020 COLORECTAL CANCER SCREENING 03/07/2023 COVID-19 Vaccine ( - season) 04/04/202405/2021 INFLUENZA VACCINE 05/04/2025 09/25/2018 TDAP/TD VACCINES (2 - Td or Tdap) 05/22/2027 017 ZOSTER VACCINE Completed 09/25/2020, 06/07/2020 Insurance [facility] Care Teams Forensics Analyst Relationship Specialty Start Date End Date Mj Tiwari MD [address] [facility] [address] [facility] [address] [facility] [place] [address] PCP - General Family Medicine 06/09/17
--- OUTSIDE RECORDS SUMMARY | 2025-03-28 13:14 | XMS_ITS | Clinical Summary ---
Author Organization [facility] Address [address] [id number] Care Team Providers Care All Source Intelligence Name Role Phone Addis Hawk Primary Care Provider [phone] Immunizations Immunization Administration Dates Next Due Influenza, injectable, quadrivalent, preservativ e free 11/08/2017 Social History Tobacco Use Types Packs/Day Years Used Date Smoking Tobacco: Never Assessed Comments Unknown Sex and Gender Information Value Date Recorded Sex Assigned at Not on file Legal Sex Female 6:50 PM EDT Gender Identity Not on file Sexual Orientation Not on file Plan of Treatment Not on file Care Teams All Source Intelligence Relationship Specialty Start Date End Date Addis Hawk PA [address] [facility] [address] [place] [id number] PCP - General 12/15/20
== END 2025-03-25 23:59 | disposition home or self-care (01) ==
LOC: LAB.DROPOF 03-28 13:10
PROVIDERS: PCP Nurse Practitioner Family; Visit Provider Nurse Practitioner Family
DX: R52 Pain, unspecified (principal)
CPT/HCPCS: 87635